=== PATIENT | male | born 1975 | race Caucasian/White ===

== ENCOUNTER 2025-05-05 08:45 | Outpatient (REF) | payer OTHER, SELFPAY ==
--- NOTE | ~2025-05-05 | XR_ITS ---
EXAMINATION: XR KNEE 3 VIEWS RIGHT HISTORY: M25.561 - Pain in right knee COMPARISON: There are no prior studies available for comparison. FINDINGS: Three views of the right knee are submitted. Osseous mineralization is normal. There is no fracture or dislocation. There is moderate to severe osteoarthritis of the lateral compartment with joint space narrowing and osteophyte formation. More moderate changes are noted involving the patellofemoral compartment. There is a moderate joint effusion. XR/XR knee RT 3V IMPRESSION: Moderate joint effusion. Osteoarthritis as described. Electronically signed by: Kennedy Hudson MD 05/05/2025 03:32 PM EDT
--- OUTSIDE RECORDS SUMMARY | 2025-05-06 09:23 | XMS_ITS | Clinical Summary ---
Author Organization [facility] Address [address] [place] [address] Care Team Providers Care Banbury Mixer Operator Name Role Phone Saud Mott PA-C Primary Care Provider [phone] Allergies Active Allergy Reactions Criticality Noted Date Comments Glatiramer Hives 10/18/2020 Medications Medication Sig Dispensed Refills Start Date End Date Status amLODIPine-valsartan -HCTZ (Exforge HCT) 5-160-25 MG TABS Take 1 tablet by mouth daily. 90 tablet 1 01/09/2024 Active Trijardy XR 12.5-2.5-1000 MG [id number]:Type 2 diabetes mellitus without complication, without long-term [...] place to sleep or slept in a intermediate (including now)? No 01/25/2024 Sex and Gender [...] age to complete this topic Care Teams Banbury Mixer Operator Relationship Specialty Start Date End Date Saud Mott PA-C PCP - General Wicker Worker 11/01/20
--- OUTSIDE RECORDS SUMMARY | 2025-05-06 09:23 | XMS_ITS | Encounter Summary ---
Author Organization [facility] Address [address] [place] [address] Care Team Providers Care Repairer Helper Name Role Phone Unavailable Primary Care Provider Unavailabl e Encounter Details Date Type Department Care Team (Latest Contact Info) Description 07/16/2020 Lab Requisition [facility] COVID Drive Through [address] [place] [address] [address] [place] [address] Bernard Gomez PA-C [address] [place] [phone] Encounter for laboratory testing for COVID-19 virus [...] is highly recommended.Final report signed by Kayy Castillo, Ph.D., [facility], Laboratory DirectorTests performed at [facility] Nasopharyngeal swab / Unknown 07/16/2020 3:39 PM EST 07/16/2020 3:39 PM EST Narrative [facility] - 07/19/2020 8:43 AM EST Performed by [facility] [address] [place] [address], CLIA# [id number] and [place] License# [id number] Bernard Gomez PA-C MICROBIOLOGY - GENERAL OR DERABLES Final Result [facility] documented in this encounter Visit Diagnoses Diagnosis Encounter for laboratory testing for COVID-19 virus documented in this encounter
--- OUTSIDE RECORDS SUMMARY | 2025-05-06 09:23 | XMS_ITS | Clinical Summary ---
Author Organization [facility] Address [address] [place] [address] Phone Care Team Providers Care Rescue Instructor Name Role Phone Saud Mott Primary Care Provider [phone] Allergies Active Allergy Reactions Criticality Noted Date [...] RC tear; Surgeon: Kamaljit Jose MD; Location: [facility]; Service: CSMI; Laterality: Right; SHOULDER ARTHROSCOPY 07/25/2017 Right PROCEDURE:SHOULDER ARTHROSCOPY;COMMENT:Procedure: AC EXCISION; Surgeon: Kamaljit Jose MD; Location: [facility]; Service: CSMI; Laterality: Right; ROTATOR CUFF REPAIR Right PROCEDURE:ROTATOR CUFF REPAIR Medical History Medical History Date Comments MS (multiple sclerosis) DX:MS (m ultiple sclerosis) ([facility]) Social History Tobacco Use Types Packs/Day Years [...] Description 05/18/2025 4:00 PM EDT Office Visit [facility] [address] [facility] [address] [place] [address] Kyrie Delgado MD [address] [place] [address] Health Maintenance Due Date Last Done Comments Colorectal Cancer Screening: Colonoscopy 1976 Hepatitis B Vaccines (1 of 3 - 19+ 3-dose series) 1995 Pneumococcal Vaccine: Pediatrics (0 to 5 Years) and At-Risk Patients (6 to 49 Years) (1 of 2 - PCV) 1995 Cholesterol Screening (Lipid Panel) 07/16/2022 Social Influencers of Health Screening 07/16/2022 [...] Routine 06/25/2024 3:30 PM EST Multiple sclerosis ([facility] V24, [facility] V28) HIV 1, 2 ANTIBODY, P24 ANTIGEN WITH REFLEX TO DIFFERENTIATION Routine 06/25/2024 3:30 PM EST Multiple sclerosis (CMS/HCC V24, CMS/HCC V28) CREATININE, SERUM Routine 06/25/2024 3:3 0 PM EST Multiple sclerosis (CMS/HCC V24, CMS/HCC V28) from Last 3 Months or Most Recently Relevant to Health Maintenance Results * Hepatitis C antibody (06/25/2024 3:30 PM EST) Pathologist [facility] Hepatitis C Antibody Negative Negative LAB CHEMISTRY METHOD 06/25/2024 7:45 PM EST [facility] Blood Venous blood specimen / Unknown Venipuncture / Unknown 06/25/2024 3:30 PM EST 06/25/2024 3:30 PM EST us Kyrie Delgado MD LAB BLOOD ORDERABLES Fin al Result Performing Organization Address [facility]/ZIP Co de Phone Number [facility] [address] [place] [address], [place] [phone] * HIV 1,2 antibody, p24 antigen with reflex to differentiation (06/25/2024 3:30 PM EST) [facility] HIV Combo AB/AG Negative Negative LAB CHEMISTRY METHOD 06/25/2024 7:47 PM EST [facility] Blood Venous blood specimen / Unknown Venipuncture / Unknown 06/25/2024 3:30 PM EST 06/25/2024 3:30 PM EST Narrative [facility] - 06/25/2024 7:47 PM EST [...] ORDERABLES Fin al Result Performing Organization Address [facility]/ZIP Co de Phone Number [facility] [address] [place] [address], * Creatinine (06/25/2024 3:30 PM EST) Creatinine 1.07 0.70 - 1.30 mg/dL LAB CHEMISTRY METHOD 06/25/2024 6:57 PM EST [facility] eGFR 86 >=60 mL/min/1. 73m2 LAB CHEMISTRY METHOD 06/25/2024 6:57 PM EST [facility] Comment:Calculation based on the Chronic Kidney Disease Epidemiology Collaboration (CKD-EPI) equation refit without adjustment for race. Blood Venous blood specimen / Unknown Venipuncture / Unknown 06/25/2024 3:30 PM EST 06/25/2024 3:30 PM EST Kyrie Delgado MD LAB BLOOD ORDERABLES Fin al Result [facility] [address] [place] [address], [place] [phone] from Last 3 Months or Most Recently Relevant to Health Maintenance Insurance [facility] ELENITA GALLARDO [id number] Care Teams Rescue Instructor Relationship Specialty Start Date End Date Saud Mott PA [address] [place] [address] PCP - General [place]ota 11/01/20
--- OUTSIDE RECORDS SUMMARY | 2025-05-06 09:23 | XMS_ITS | Encounter Summary ---
Author Organization [facility] Address [address] [id number] Care Team Providers Care Fruit Loader Machine Operator Name Role Phone Unavailable Primary Care Provider Unavailabl e Encounter Details Date Type Department Care Team (Latest Contact Info) Description 09/14/2020 Lab Requisition [facility] COVID [address] Through [address] [place] [address] [address] [place] [address] Sharad Ness MD [address] [place] [address] Encounter for laboratory testing for [...] Lele Juarez, Ph.D., Laboratory DirectorTests performed at [facility] Nasopharyngeal swab / Unknown 09/14/2020 11:55 AM EST 09/14/2020 11:55 AM EST Narrative BING JOSEPH - 09/15/2020 8:07 AM EST Performed by [facility] [address] [place] [address], CLIA# [id number] and [place] License# [id number] us Sharad Ness MD MICROBIOLOGY - GENERAL ORDER TERRI Final Result BING JOSEPH documented in this encounter Visit Diagnoses Diagnosis Encounter for laboratory testing for COVID-19 virus documented in this encounter
--- OUTSIDE RECORDS SUMMARY | 2025-05-06 09:23 | XMS_ITS | Clinical Summary ---
Author Organization [facility] Address [address] [place] [address] Care Team Providers Care Database Administrator Name Role Phone Unavailable Primary Care Provider [...]
--- OUTSIDE RECORDS SUMMARY | 2025-05-06 09:23 | XMS_ITS | Encounter Summary ---
Author Organization [facility] Address [address] [place] [address] Care Team Providers Care Electrocardiograph Operator Name Role Phone Unavailable Primary Care Provider Unavailabl e Encounter Details Date Type Department Care Team (Latest Contact Info) Description 07/21/2020 Lab Requisition [facility] [address] [place] [address] [address] [place] [address] Bernard Gomez PA-C [address] [place] [address] Encounter for laboratory testing for COVID-19 virus [...] Bisram Deocharan, Ph.D., Laboratory DirectorTests performed at [facility] Nasopharyngeal swab / Unknown 07/21/2020 1:09 PM EST 07/21/2020 1:09 PM EST Narrative BING JOSEPH - 07/23/2020 5:25 PM EST Performed by [facility] [address] [place] [address], CLIA# [id number] and [place] License# [id number] Bernard Gomez PA-C MICROBIOLOGY - GENERAL OR DERABLES Final Result BING JOSEPH documented in this encounter Visit Diagnoses Diagnosis Encounter for laboratory testing for COVID-19 virus documented in this encounter
== END 2025-05-05 08:46 | disposition home or self-care (01) ==
LOC: HO.HOSX 08:45
PROVIDERS: Visit Provider Orthopaedic Surgery
DX: S83.241D Other tear of medial meniscus, current injury, right knee, subsequent encounter (principal); X58.XXXD Exposure to other specified factors, subsequent encounter
CPT/HCPCS: 73562

== ENCOUNTER 2025-05-05 15:17 | Outpatient (AMB) | payer OTHER, SELFPAY ==
--- NOTE | 2025-05-05 15:25 | MHC.OFFVIS ---
Vital Signs 05/05/25 15:27 Height 5 ft 11 in Weight 235 lb BMI 32.8 Intake Visit Reasons: Right knee pain and giving way Intake Note: Saqib is a 49 year old male who presents with complaints of progressively worsening right knee pain and giving way. The patient states that he 1st injured his right knee several years ago while jumping on a trampoline. He had acute onset of pain along the medial aspect of his knee. He was seen by another orthopedic group approximately 6 months ago. He was given a cortisone injection at that time which gave him only temporary relief. He has failed the last 6 weeks of conservative treatment which has included Tylenol, anti-inflammatory medicines, a home exercise program and physical therapy exercises. The patient states that his right knee will give out several times per day. He has tried wearing a knee brace which gives him mild relief. Allergies No Known Allergies Allergy (Verified 05/05/25 15:27) Medication List - Last Reconciled 05/05/25 by John Saxena MD amlodipine-valsartan 5-160 mg 1 tab PO DAILY yggwhagzfze-eyfjsgng-dbcfpcmkk 12.5-2.5-1,000 mg ER (Trijardy XR) 2 tabs PO DAILY ergocalciferol (vitamin D2) 1,250 mcg PO QWEEK hydrochlorothiazide 25 mg PO DAILY varenicline tartrate 0.5 mg PO BID Physical Exam Vital Signs: BMI result Body Mass Index 32.8 Const Other: Well-nourished well-developed very friendly male awake alert and oriented x3 in no acute distress Extrem Other: Bilateral lower extremity examination shows good capillary refill, no skin lesions noted, normal sensation light touch Right knee examination shows a minimal effusion, mild crepitus with range of motion, tenderness along his medial joint line, positive Gustavo's test, no instability Results Reviewed Results Reviewed: X-rays of the patient's right knee show mild to moderate diffuse joint space narrowing, no acute bony abnormalities Assessment & Plan Assessment & Plan (1) Tear of medial meniscus of right knee: Code(s): S83.241A - Other tear of medial meniscus, current injury, right knee, initial encounter Category: Medical Plan Mr. Ho presents with progressively worsening right knee pain and mechanical symptoms due to early degenerative joint disease as well as possible medial meniscus tearing. Thus, I will send the patient for an MRI of his right knee for further evaluation. I will see him back once the MRI is completed to discuss the findings and treatment options. Feel free to call me at any time should questions regarding his orthopedic management arise. Thank you very much for asking me to see this very friendly gentleman. I spent 21 minutes in reviewing the patient's records and imaging studies, seeing the patient and documenting in the medical record. Orders: Orders XR knee RT 3V 05/05/25 M25.561 - Pain in right knee MR knee RT wo con Today S83.241A - Other tear of medial meniscus, current injury, right knee, initial encounter Coding Level of Care Code New Pt Level 3 (27279) Complex EM visit Add On G2211 Diagnoses Tear of medial meniscus of right knee S83.241A
[2025-05-05 15:27] VITALS: BMI 32.8
--- OUTSIDE RECORDS SUMMARY | 2025-05-05 16:36 | XMS_ITS | Clinical Summary ---
Author Organization [facility] Address [address] [place] [address] Care Team Providers Care Sand System Operator Name Role Phone Saud Mott PA-C Primary Care Provider [phone] Allergies Active Allergy Reactions Criticality Noted Date Comments Glatiramer Hives 10/18/2020 Medications Medication Sig Dispensed Refills Start Date End Date Status amLODIPine-valsartan -HCTZ (Exforge HCT) 5-160-25 MG TABS Take 1 tablet by mouth daily. 90 tablet 1 01/09/2024 Active Trijardy XR 12.5-2.5-1000 MG [id number]:Type 2 diabetes mellitus without complication, without long-term current use of insulin (HCC) TAKE 2 TABLETS BY MOUTH EVERY DAY 180 tablet 1 06/04/2024 Active Active Problems Problem Noted Date Diagnosed Date Essential hypertension 04/23/2023 Multiple sclerosis 04/23/2023 AC (acromioclavicular) arthritis 06/12/2017 Incomplete tear of right rotator cuff 06/12/2017 Social History Tobacco Use Types Packs/Day Years Used Date Smoking Tobacco: Every Day Cigarettes 0.5 Started: 2017 Smokeless Tobacco: Never Tobacco Cessation:Ready to Q uit: Not Asked; Counseling Given: Not Answered Alcohol Use Standard Drinks/Week Comments Yes 2 (1 standard drink = 0.6 oz pur e alcohol) Overall Financial Resource Strain (CARDIA) Answe r Date Recorded How hard is it for you to pa y for the very basics like food, housing, medical care, and heating? Not very hard 01/25/2024 Hunger Vital Sign Answer Date Recorded Within the past 12 months, y ou worried that your food would run out before you got the money to buy more. Never true 01/25/20 24 Within the past 12 months, t he food you bought just didn't last and you didn't have money to get more. Never true 01/25/2024 PRAPARE - Transportation Answer Date Re corded In the past 12 months, has l ack of transportation kept you from medical appointments or from getting medications? No 01/05 In the past 12 months, has l ack of transportation kept you from meetings, work, or from getting things needed for daily living? No 01/25/2024 Housing Stability Vital Sign Answer Cristobal e Recorded In the last 12 months, was t here a time when you were not able to pay the mortgage or rent on time? No 01/25/2024 In the last 12 months, how many places have you lived? 1 01/25/2024 In the last 12 months, was t here a time when you did not have a steady place to sleep or slept in a detention (including now)? No 01/25/2024 Sex and Gender Information Value Date Recorded Sex Assigned at Male 11/11/2020 2:52 PM EDT Gender Identity Not on file Sexual Orientation Not on file Job Start Date Occupation Industry Not on file Not on file Not on file Last Filed Vital Signs Vital Sign Reading Time Taken Comments Blood Pressure 147/87 04/21/2024 4:00 PM EDT Pulse 76 04/21/2024 4:00 PM EDT Temperature 36.3 C (97.3 F) 12/24/2023 4:05 PM EDT Respiratory Rate 20 08/14/2023 2:05 PM EST Oxygen Saturation 98% 04/21/2024 4:00 PM EDT Inhaled Oxygen Concentration - - Weight 101.4 kg (223 lb 9.6 oz) 04/21/2024 4:00 PM EDT Height 180.3 cm (5' 11 ) 04/21/2024 4:00 PM EDT Body Mass Index 31.19 04/21/2024 4:00 PM EDT Plan of Treatment Health Maintenance Due Date Last Done Comments Hepatitis B Vaccines (1 of 3 - 3-dose series) 1976 Hepatitis C Screening 1976 COVID-19 Vaccine (#1) 1976 Pneumococcal Vaccine (1 of 2 - PCV) 1982 Depression Screening 1988 BMI Counseling 1994 Diabetes: Eye Exam (No Retinopathy) 1994 Diabetes: Foot Exam 1994 Diabetes: Microalbumin Test 1994 Preventative Health Evaluation 1994 Tobacco Cessation Counseling 1994 DTap / Tdap / Td (1 - Tdap) 1995 Colon Cancer Screening (Colonoscopy) 2021 Influenza Vaccine (#1) 2025 Hemoglobin A1C Due 07/23/2025 01/21/2025, 0 04/04/2024, 12/04/2023, Additional history exists RSV Ped < 20 months Aged Out No longe r eligible based on patient's age to complete this topic Care Teams Sand System Operator Relationship Specialty Start Date End Date Saud Mott PA-C PCP - General Custom Car Builder 11/01/20
--- OUTSIDE RECORDS SUMMARY | 2025-05-05 16:36 | XMS_ITS | Encounter Summary ---
Author Organization [facility] Address [address] [place] [address] Care Team Providers Care Yield Clerk Name Role Phone Unavailable Primary Care Provider Unavailabl e Encounter Details Date Type Department Care Team (Latest Contact Info) Description 07/21/2020 Lab Requisition [facility] [facility] [address] [place] [address] [address] [place] [address] Bernard Gomez PA-C [address] [place] [address] [id number] Encounter for laboratory testing for COVID-19 virus Social History Tobacco Use Types Packs/Day Years Used Date Smoking Tobacco: Never Assessed Sex and Gender Information Value Date Recorded Sex Assigned at Not on file Legal Sex Male 3:01 PM EST Gender Identity Not on file Sexual Orientation Not on file documented as of this encounter Plan of Treatment Not on file documented as of this encounter Procedures Procedure Name Priority Date/Time Associated Diagnosis Comments COVID-19 (SARS-COV-2) - [facility] LAB Routine 07/21/2020 1:09 PM EST Encounter for laboratory testing for COVID-19 virus [ICD-10-CM] documented in this encounter Results * COVID-19 (SARS-COV-2) (SEMA4) (07/21/2020 1:09 PM EST) COVID-19 RT-PCR NOT-DETEC KRISTAL Not-Detec kristal 07/23/2020 5:25 PM EST [facility] - [facility] Comment:Interpretation: The viral RNA was not detected, making the COVID-19 diagnosis less likely. Clinical correlation is highly recommended.Final report signed by Bisram Deocharan, Ph.D., Laboratory DirectorTests performed at [facility] Microbiology Nasopharyngeal swab / Unknown 07/21/2020 1:09 PM EST 07/21/2020 1:09 PM EST Narrative BING JOSEPH - 07/23/2020 5:25 PM EST Performed by [facility]., [address] [place] [address], CLIA# [id number] and [place] License# [id number] Bernard Gomez PA-C MICROBIOLOGY - GENERAL OR DERABLES Final Result BING JOSEPH documented in this encounter Visit Diagnoses Diagnosis Encounter for laboratory testing for COVID-19 virus documented in this encounter
--- OUTSIDE RECORDS SUMMARY | 2025-05-05 16:36 | XMS_ITS | Data Portability ---
Author Organization [place] [facility] [place] Address [address] [place] [address] Care Team Providers Care Headstart Teacher Name Role Phone MARGUERITE SONG Primary Care Provider [phone] MARGUERITE SONG Referring Provider [phone] Assessment Encounter Date Assessment Date Assessment LastModified by Organization Details LastModified Time 02/29/2024 02/29/2024 The patient's history and physical exam are consistent with left impingement syndrome. X-rays were reviewed on the computer. The space between the undersurface of the acromion and above the humeral head is the impingement interval. Any condition that narrows this interval causes impingement, including the presence of subacromial bone spurs. There are 3 stages of impingement- stages I, II, and III. Stage I impingement occurs in young patients and is likely a result of overuse. Stage II impingement occurs in slightly older patients and likely results in tendonitis or partial tearing of the rotator cuff. Stage III impingement generally occurs in patients older than 50 and is associated with rotator cuff tearing. Conservative treatment options include avoiding aggravating activities, NSAIDS, home exercises or physical therapy, cortisone injections, or further testing. Operative interventions are reserved for patients who fail conservative treatment. After discussion, the patient was eager for an injection. Patient tolerated the injection well. Postinjection instructions given. Frequency of injection was reviewed. Patient will follow-up in 3 to 4 weeks if symptoms have not improved, sooner for any complications. All questions answered to their satisfaction. He would like to monitor symptoms after the injection. He is welcome return if they persist or return. Patient was seen and evaluated by Nic Alvarez PA-C in indirect conjunction with Dr. Lomas. The provider agrees with the history, physical examination, recommended tests/diagnostic imaging, and treatment plan. [email or web address] Not available 02/29/2024 16:30:47 01/02/2025 01/02/2025 Symptomatic righ t knee osteoarthritis, predominantly lateral compartment although he does have some mild patellofemoral and medial compartment degenerative changes. Given the degree of his lateral compartment arthrosis I would not be surprised if he has a degenerative lateral meniscus tear. He does have a joint effusion today. We reviewed the natural history of osteoarthritis. The patient understands that symptoms may progress over time requiring further intervention. We discussed in detail available treatment options. We discussed activity modification, especially avoiding impact type activities. We discussed the need for an ongoing maintenance flexibility and strengthening program. This should involve the core musculature, the hip, as well as the quadriceps and hamstrings. Intermittent icing 20 minutes off 3 to 4 times a day with the skin protected may be helpful for control of swelling. Uery-pwv-nfgwewb anti-inflammatory medications with appropriate GI precautions or Tylenol may be helpful in controlling intermittent symptoms of pain. An assistive device such as a cane may be helpful in unloading the joint. Supplements may be considered such as chondroitin and glucosamine sulfate. The literature is unclear as to benefit, however, some patients see improvement with these type of supplements. We also discussed other interventions including therapeutic injections. We discussed varieties of injections including cortisone, viscosupplementat ion, and PRP. We also discussed the possibility of surgical intervention if symptoms persist. We discussed arthroscopic intervention as well as total knee arthroplasty. A decision for surgery is dependent on a variety of factors including patient characteristics, co-morbidities, expectations, and expected outcome. We went over treatment options at length. Given his effusion and discomfort I offered him an aspiration and cortisone injection. He wanted to proceed. Tolerated procedure well. Postinjection instructions reviewed. Recheck in about 3 weeks we will see how he responds to the injection. Future consideration for viscosupplementat ion. May also benefit from consideration of a lateral signal constructor brace. Not clear that he would be a candidate for anything arthroscopic given the degree of his degenerative change. Long-term management may be a knee arthroplasty, thought would be to try to delay this as long as possible given his young age. Questions invited and answered at length. Greater than 30 minutes was spent with the encounter today, including face to face time with the patient, documentation, review of records/imaging if applicable, and coordination of care. Not available 01/02/2025 17:04:15 01/29/2025 01/29/2025 Improved acute right knee pain in the setting of lateral compartment arthritis. He is essentially asymptomatic. Will continue with observation and can continue activities as tolerated. We again discussed the diagnosis and reviewed treatment options moving forward. He will follow-up with us as needed. Questions invited and answered. Patient verbalizes understanding and agreement with plan. PRIOR SAB: Symptomatic right knee osteoarthritis, predominantly lateral compartment although he does have some mild patellofemoral and medial compartment degenerative changes. Given the degree of his lateral compartment arthrosis I would not be surprised if he has a degenerative lateral meniscus tear. He does have a joint effusion today. We went over treatment options at length. Given his effusion and discomfort I offered him an aspiration and cortisone injection. He wanted to proceed. Tolerated procedure well. Postinjection instructions reviewed. Recheck in about 3 weeks we will see how he responds to the injection. Future consideration for viscosupplementat ion. May also benefit from consideration of a lateral signal constructor brace. Not clear that he would be a candidate for anything arthroscopic given the degree of his degenerative change. Long-term management may be a knee arthroplasty, thought would be to try to delay this as long as possible given his young age. Questions invited and answered at length. Not available 01/29/2025 14:09:20 Plan of Treatment Reminders Order Date Submit Date Provider Last Modified By Organization Details Last Modified Time Details Appointments None recorded. Lab None recorded. Referral None recorded. Procedures None recorded. Surgeries None recorded. Imaging XR, knee, 3 view 2024 025 [email or web address] [facility], [address], [place], [address], 15:37:38 XR, shoulder, 2 or more view 2023 024 [email or web address] [facility], [address], [place], [address], 4 08:41:49 Medication Orders lidocaine (PF) 100 mg/5 mL (2 %) injection syringe 2024 025 [email or web address] #[id number], [address] [place], [address], 5 16:39:38 triamcinolo ne acetonide 40 mg/mL suspension for injection 2024 025 [place] [address] [id number], [address] [place], [address], 5 16:39:38 lidocaine (PF) 100 mg/5 mL (2 %) injection syringe 2023 024 [facility] 21 [facility] #[id number], [address] [place], [address], 4 08:41:49 triamcinolo ne acetonide 40 mg/mL suspension for injection 2023 024 [facility] 21 [facility] #[id number], [address] [place], [address], 4 08:41:49 Patient TargetsNo targets recorded. Patient Instructions Encounter Date Encounter Id Patient Instructions Last Modified By Organization Details Last Modified Time 02/29/2024 [id number] Radiographs: 4 Views of the Left shoulder were obtained in the [place] office on 02/29/2024 including AP, Grashey, Y and axillary views. X-rays demonstrated normal bony mineralization. No significant degenerative changes in the AC joint with no widening. . Glenohumoral joint space well-maintained. No abnormal calcifications in the lateral shoulder. No evidence of acute injury or fracture. Interpretation by: Nic Alvarez PA-C [email or web address] Not available 02/29/2024 16:31:11 01/02/2025 [id number] Patient Instructions Following Cortisone Injections Dr. Lomas has recommended a cortisone injection for you in the office today. He has injected the area in order to reduce the pain and inflammation that you are experiencing. Please note that not everyone will have a lasting response following the injection. Here is some information that he would like for you to have: Content of the Injection: The injection consists of two medications. Cortisone (an anti-inflammatory that will take 48-72 hours to take effect) and Lidocaine (a numbing agent that will last 2-3 hours). Once the Lidocaine wears off, you may have an increase in your pain. Dr. Lomas recommends icing the affected area for 20 minutes 3-4 times per day. Post-injection Instructions: It is recommended that you refrain from any high level activities using the joint or limb that was injected for approximately 24-48 hours. Normal day to day activities are generally not a problem. Possible Side Effects Skin discoloration: Individuals with dark complexions may experience some skin discoloration locally at the site of the injection. Steroid Flare-Up: There is the possibility of an increase in discomfort within 48 hours following the injection. This is called a pranav chene . To help minimize the chances of this, please see the post-injection instructions above. Infection: There is a less than 1% chance of an infection. If you notice any signs of infection (redness, warmth, drainage, fever greater than 100 degrees) you should call Dr. Lomas s office immediately at [phone]. Not available 01/02/2025 15:13:11 3 views of the right knee were obtained on 01/02/2025 in the [place] office. There is moderate lateral joint space narrowing with marginal osteophyte formation. Subtle marginal osteophyte formation on the medial tibial plateau. Mild retropatellar spurring. Patella tracks centrally. Small enthesophyte from the superior patella. No acute fracture appreciated. Findings: Right knee osteoarthritis as described. Interpreted by: Javier Lomas MD Not available 01/02/2025 15:33:14 01/29/2025 [id number] views of the right knee were obtained on 01/02/2025 in the [place] office. There is moderate lateral joint space narrowing with marginal osteophyte formation. Subtle marginal osteophyte formation on the medial tibial plateau. Mild retropatellar spurring. Patella tracks centrally. Small enthesophyte from the superior patella. No acute fracture appreciated. Findings: Right knee osteoarthritis as described. Interpreted by: Javier Lomas MD Not available 01/29/2025 14:06:26 Reason for Referral None Reported. Problems Name Problem SNOMED Code Status Onset Date Resolution Date Notes Provider Name and Address Organization Details Recorded Time Problem 59555253 Active No known active problems Not Available [facility] 23:47:41 Partial thickness rotator cuff tear 902541263 Active 2016 Incomplet e tear of right rotator cuff Not Available [facility] 23:47:41 Arthritis of acromiocl avicular joint 138693080 Active 2016 AC (acromioc lavicular ) arthritis Not Available [facility] 23:47:41 Multiple sclerosis 86972823 Active 2022 Multiple sclerosis Not Available [facility] 23:47:41 Essential hypertens ion 49012644 Active 2022 Essential hypertens ion Not Available [facility] 23:47:41 Osteoarth ritis of right knee joint 54187502461 9100 Active 2024 Javier Lomas MD [address], [place], [address] , [place] [facility] 14:50:42 Effusion of joint of right knee 33174614460 9104 Active 2024 Javier Lomas MD [address], [place], [address] , [place] [facility] 5 17:04:23 Pain of right knee joint 23087299904 4100 Active 2024 EDILSON KUMAR PA-C [address], [place], [address] , [place] [facility] 5 14:06:25 Problem Notes None recorded. Procedures Surgical History Date Name Laterality Status Provider Name and Address Organization Details Recorded Time SAB Knee Inj w/US completed Javier Lomas MD [address], [place], [address], [place] [facility] 01/02/2025 15:34:03 4 SUSAN Subacromial Shoulder Inj completed NIC ALVAREZ PA-C [address], [place], [address], [place] [facility] 02/29/2024 16:27:02 Imaging Results None recorded. Procedure Notes None recorded. Medical Equipment None Reported. Allergies Allergen ID Allergen Name Allergen Category Reaction Reaction Severity Criticality Documentation Date Start Date Code Code System Note Provider Name and Address Organization Details Recorded Time 474085 glatirame r acetate medicatio n Not available Not available Not available 04/28/20252020 75300 RxNorm React ion: Hives , sever ity: Unkno wn Not Available [facility] 01:30:53 Medications Name Sig Start Date Stop Date Status Note LastModified by Organization Details LastModified Time acetaminoph en 325 mg tablet Take 2 tablets (650 mg total) by mouth every 6 (six) hours as needed for pain. 04/23 completed Not Available Not Available Not Available ondansetron HCl 4 mg tablet Take 1 tablet (4 mg total) by mouth every 6 (six) hours as needed for nausea. 01/10 completed Not Available Not Available Not Available oxycodone-a cetaminophe n 5 mg-325 mg tablet Take 1 tablet by mouth every 4(four) to 6(six) hours as needed for pain. (Q4-6hrs PRN) 12/21 completed Not Available Not Available Not Available triamcinolo ne acetonide 40 mg/mL suspension for injection Take 60 mg by injection route. 2024 active Not Available Not Available Not Avai lable ibuprofen 200 mg tablet Take 1 tablet (200 mg total) by mouth every 6 (six) hours as needed for pain. 04/23 completed Not Available Not Available Not Available etodolac 400 mg tablet Take 1 tablet (400 mg total) by mouth 2 (two) times a day. 12/21 completed Not Available Not Available Not Available hydrochloro thiazide 25 mg tablet TAKE 1 TABLET BY MOUTH EVERY DAY active Not Available Not Available No t Available ergocalcife rol (vitamin D2) 1,250 mcg (50,000 unit) capsule TAKE 1 CAPSULE (50,000 UNITS TOTAL) BY MOUTH ONCE WEEKLY active Not Available Not Available No t Available valsartan active Not Available Not Lilia ilable Not Available hydrochloro thiazide active Not Available Not Available Not Available amlodipine active Not Available Not Av ailable Not Available varenicline tartrate 0.5 mg tablet TAKE 1 TABLET BY MOUTH TWICE A DAY active Not Available Not Available No t Available amlodipine 5 mg-valsarta n 160 mg tablet TAKE 1 TABLET BY MOUTH EVERY DAY active Not Available Not Available No t Available amlodipine 5 mg-valsarta n 160 mg-hydrochl orothiazide 25 mg tablet TAKE 1 TABLET BY MOUTH EVERY DAY active Not Available Not Available No t Available lidocaine (PF) 100 mg/5 mL (2 %) injection syringe Take 5 mL by injection route. 2024 active Not Available Not Available Not Avai lable Trijardy XR 12.5 mg-2.5 mg-1,000 mg tablet, extended release TAKE 2 TABLETS BY MOUTH EVERY DAY active Not Available Not Available No t Available Trijardy XR active Not Available Not A vailable Not Available Vitals Date Recorded Body height Body mass index (BMI) Body weight Provider Name and Address Organization Details Last Updated DateTime 01/29/2025 180.34 cm 30.7 kg/m2 [address]1680.[address] [place] [facility] 01/29/2025 13:35:11 Date Recorded Body height Body mass index (BMI) Body weight Provider Name and Address Organization Details Last Updated DateTime 02/29/2024 180.34 cm 30.7 kg/m2 34132.[address] [place] [facility] 02/29/2024 15:51:08 Date Recorded Body height Body mass index (BMI) Body weight Heart rate Oxygen saturation Oxygen saturation in Arterial blood by Pulse oximetry Systolic And Diastolic Provider Name and Address Organization Details Last Updated DateTime 180.3 cm 31.19 kg/m2 759215 g 76 /min 98 % 98 % 147/87 mm[Hg] Not Available [facility] 01:02:38 Social History None recorded. Functional Status None recorded. Mental Status None recorded. Family History Nothing Reported. Medical History No medical history recorded. Past Encounters Encounter ID Performer Location Encounter Start Date Encounter Closed Date Diagnosis/Indication Diagnosis SNOMED-CT Code Diagnosis ICD10 Code Diagnosis IMO Codes [id number] [address] [place] [address] 02/29/2024 15:24:56 02/29/2024 16:24:52 Pain of left shoulder region 7711280734 M25.512 Additional diagnosis detail: Left shoulder pain, unspecifie d chronicity [id number] MD BESSIE Braun [address] [facility] [place] [address] 01/02/2025 14:30:15 01/02/2025 15:37:38 Pain of right knee joint 1749735492 50458 M25.561 934612 Osteoarthr itis of right knee joint 1378607130 95001 M17.11 3110638 Effusion o f joint of right knee 5954592372 59371 M25.311 [id number] [facility] [address] [place] [address] 01/29/2025 13:29:47 01/29/2025 14:03:36 Osteoarthritis of right knee joint 1973873481 14327 M17.11 4494755 Pain of ri ght knee joint 6977976333 15235 M25.561 515608 Effusion o f joint of right knee 2176870870 98798 M25.410 2216052 Health Concerns Section Related Observation LastModified by Organization Detai ls LastModified Time None Recorded Concern Status LastModified by Organization Details LastModified Time None Recorded Advance Directives Directive None Recorded Payers Insurance Date Sequence Insurance Name Policy Number Policy Lisa Covered Member ID Lisa Member ID Guarantor Name 01/02/2025 1 LINDA [id number] Saqib Ho [id number] Saqib Ho 01/29/2025 1 [facility] [id number] Saqib Ho [id number] Saqib Ho Notes Date Note Type Note Provider Name and Address Organization Details Recorded Time 02/29/2024 text/html ROS as noted in the HPI Patient is a 48-year-old male who presents today with 2 months of left shoulder pain. 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 He was having increased pain which is gotten worse. Symptoms are exacerbated after doing a ceiling job. With his ongoing symptoms he presents today for orthopedic consultation. No numbness or tingling. Pain with specific positions. No weakness. He does have a history of rotator cuff tear repaired on the right many years ago. 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 He is a daily smoker. NIC ALVAREZ PA-C [address], [place], [address], [place] [facility] 02/29/2024 16:31:56 01/02/2025 text/html ROS as noted in the HPI Very pleasant 49-year-old gentleman here for an evaluation of persistent right knee pain. 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 He denies any prior history of significant injuries or problems to the knee before that. Following that May 2024 incident he described the knee as sore, a little bit swollen. He obtained a knee sleeve. About 6 weeks ago he was at his chiropractic office and they noted some stiffness in flexion. They have been doing some ultrasound and other treatment as well as flexibility and he has had some increased symptomatology. About 3 weeks ago he hyperextended the knee again and its remained swollen and more sore. He continues to use the knee sleeve which is helpful. He continues to be very active, working a lot of jobs and doing a lot of yard work. Pain is predominantly lateral but also can be medial and posterior. He denies radiating pain to the hip or ankle. Pain is variable, today ranging between a 7 to a 9 on a 10 point scale. He denies mohinder catching or locking but at times feels there is some instability and clicking. Javier Lomas MD [address], [place], [address], [place] [facility] 01/02/2025 17:06:04 01/29/2025 text/html ROS as noted in the HPI Patient returns to the office today for follow-up evaluation of his right knee. He reports excellent improvement in his symptoms following aspiration and injection last month. He has very minimal intermittent soreness behind the back of the knee after a long day at work. He ices nightly. He has been wearing compression knee sleeve. He is careful to use kneepads or a cushion surface when kneeling. He offers no new complaints today. PRIOR SAB:Very pleasant 49-year-old gentleman here for an evaluation of persistent right knee pain. 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 He denies any prior history of significant injuries or problems to the knee before that. Following that May 2024 incident he described the knee as sore, a little bit swollen. He obtained a knee sleeve. About 6 weeks ago he was at his chiropractic office and they noted some stiffness in flexion. They have been doing some ultrasound and other treatment as well as flexibility and he has had some increased symptomatology. About 3 weeks ago he hyperextended the knee again and its remained swollen and more sore. He continues to use the knee sleeve which is helpful. He continues to be very active, working a lot of jobs and doing a lot of yard work. Pain is predominantly lateral but also can be medial and posterior. He denies radiating pain to the hip or ankle. Pain is variable, today ranging between a 7 to a 9 on a 10 point scale. He denies mohinder catching or locking but at times feels there is some instability and clicking. EDILSON KUMAR PA-C [address], [place], [address], [place] [facility] 01/29/2025 14:09:31
--- OUTSIDE RECORDS SUMMARY | 2025-05-05 16:36 | XMS_ITS | Data Portability ---
Author Organization [place] - [facility], autoContract - [facility] Address [address] [place] [address] Assessment No assessment recorded. Plan of Treatment Reminders Order Date Submit Date Provider Last Modified By Organization Details Last Modified Time Details Appointments OFFICE VISIT 30 2024 04:00P M DC Zimmerman Not available Not available Not available Lab noninvasi ve colorecta l cancer DNA + occult blood screening , QL, stool 2024 025 scyr9 Izooble (Cologuard Orders Only), [address], [address], [place], [address], 04/29/2025 16:55:23 urinalysi s, dipstick 2024 025 [email or web address] [id number] p, [address] [place] [address], [phone], 01/28/2025 15:57:22 HbA1c (hemoglob in A1c), blood 2024 025 [email or web address] [id number] p, [address] [place] [address], [phone], 09/30/2024 16:40:25 Referral None recorded. Procedures None recorded. Surgeries None recorded. Imaging electroca rdiogram 2024 025 [email or web address] [id number] p, [address] [place] [address], [phone], 01/28/2025 15:57:22 Medication Orders varenicli ne tartrate 0.5 mg tablet 2024 025 [facility] #[id number], [address] [place] [address], [address], 09/30/2024 16:38:38 Patient TargetsNo targets recorded. Patient InstructionsNo instructions recorded. Reason for Referral None Reported. Results Created Date Observation Date Name Description Value Unit Range Abnormal Flag Note LastModifiedBy Organization Detail LastModifiedTime 09/30/1909/30/2024 HbA1c (hemo globi n A1c), blood HbA1c 6.2 Not Available [id number] p [address] [place] [address], [phone], 09/30/2024 16:19:08 01/22/20 25 01/22/2025 LIPID PANEL WITH REFLE X TO DIREC T LDL cholesterol, total 142 mg/dL <200 normal Not Available [facility] [address], [address], 01/22/2025 01:08:25 01/22/20 25 01/22/2025 LIPID PANEL WITH REFLE X TO DIREC T LDL HDL cholesterol 57 mg/dL > or = 40 normal Not Available [facility] [address], [address], 01/22/2025 01:08:25 01/22/20 25 01/22/2025 LIPID PANEL WITH REFLE X TO DIREC T LDL triglyceride s 96 mg/dL <150 normal Not Available [facility] [address], [address], 01/22/2025 01:08:25 01/22/2001/22/2025 LIPID PANEL WITH REFLE X TO DIREC T LDL LDL-choleste rol 67 mg/dL _(fani c) normal Refer ence range : <100 Isabell able range <100 mg/dL for prima ry preve ntion ; <70 mg/dL for patie nts with CHD or diabe tic patie nts with > or = 2 CHD risk facto rs. LDL-C is now calcu lated using the Marni n-Hop kins santa burdick n, which is a valid ated novel melo al accur acy than the Fried amparo godinezat ion in the estim ation of LDL-C . Marni osuna SS et al. ISABELL. 2013; 310(1 9): 2061- 2068 (http ://ed ucati on.Qu estDi Stereobots. com/f aq/FA Q164) Not Available [facility] [place] [facility] [address], [place], [address], 01/22/2025 01:08:25 01/22/2001/22/2025 LIPID PANEL WITH REFLE X TO DIREC T LDL chol/HDLC ratio 2.5 (calc ) <5.0 normal Not Available [facility] [place] [facility] [address], [place], [address], 01/22/2025 01:08:25 01/22/20 25 01/22/2025 LIPID PANEL WITH REFLE X TO DIREC T LDL non HDL cholesterol 85 mg/dL _(fani c) <130 normal For patie nts with diabe lópez plus 1 major ASCVD risk facto r, treat ing to a non-H DL-C goal of <100 mg/dL (LDL- C of <70 mg/dL ) is consi dered a thera peuti c optio n. Not Available [facility] [place] [facility] [address], [place], [address], 01/22/2025 01:08:25 01/22/2001/22/2025 BASIC METAB OLIC PANEL glucose 105 mg/dL 65-99 high Fasti ng refer ence inter perfecto For someo ne witho ut known diabe lópez, a gluco se value betwe en 100 and 125 mg/dL is consi stent with predi abete s and shoul d be confi rmed with a follo w-up test. Not Available [facility] [place] [facility] [address], [place], [address], 01/22/2025 01:08:26 01/22/20 25 01/22/2025 BASIC METAB OLIC PANEL urea nitrogen (BUN) 18 mg/dL 7-25 normal Not Available [facility] [place] [facility] [address], [place], [address], 01/22/2025 01:08:26 01/22/20 25 01/22/2025 BASIC METAB OLIC PANEL creatinine 1.06 mg/dL 0.60-1 .29 normal Not Available [facility] [place] [facility] [address], [place], [address], 01/22/2025 01:08:26 01/22/2001/22/2025 BASIC METAB OLIC PANEL eGFR 87 mL/mi n/1.7 3m2 > or = 60 normal Not Available [facility] [address], [place], [address], 01/22/2025 01:08:26 01/22/2001/22/2025 BASIC METAB OLIC PANEL BUN/creatini ne ratio SEE NOTE: (calc ) 6-22 Not Repor leslie: BUN and Creat inine are withi n refer ence range . Not Available [facility] [address], [place], [address], 01/22/2025 01:08:26 01/22/2001/22/2025 BASIC METAB OLIC PANEL sodium 139 mmol/ L 135-14 6 normal Not Available [facility] [address], [place], [address], 01/22/2025 01:08:26 01/22/20 25 01/22/2025 BASIC METAB OLIC PANEL potassium 4.7 mmol/ L 3.5-5. 3 normal Not Available [facility] [address], [place], [address], 01/22/2025 01:08:26 01/22/2001/22/2025 BASIC METAB OLIC PANEL chloride 103 mmol/ L 98-110 normal Not Available [facility] [place] [facility] [address], [place], [address], 01/22/2025 01:08:26 01/22/20 25 01/22/2025 BASIC METAB OLIC PANEL carbon dioxide 27 mmol/ L 20-32 normal Not Available [facility] [place] [facility] [address], [place], [address], 01/22/2025 01:08:26 01/22/2001/22/2025 BASIC METAB OLIC PANEL calcium 9.7 mg/dL 8.6-10 .3 normal Not Available [facility] [place] [address], [place], [address], 01/22/2025 01:08:26 01/22/2001/21/2025 HEMOG LOBIN A1C WITH MPG hemoglobin A1C 6.5 % <5.7 high For someo ne witho ut known diabe lópez, a hemog lobin A1c value of 6.5% or great er indic ates that they may have diabe lópez and this shoul d be confi rmed with a follo w-up test. For someo ne with known diabe lópez, a value <7% indic ates that their diabe lópez is well contr olled and a value great er than or equal to 7% indic ates subop timal contr ol. A1c targe ts shoul d be indiv idual ized based on durat ion of diabe lópez, age, comor bid condi tions , and other consi derat ions. Curre ntly, no conse nsus exist s regmarina mireles use of hemog lobin A1c for diagn osis of diabe lópez for child samir. Not Available [facility] [place] [facility] [address], [place], [address], 01/21/2025 22:46:20 01/22/20 25 01/21/2025 HEMOG LOBIN A1C WITH MPG mean plasma glucose 154 mg/dL _(fani c) Not Available [facility] [address], [place], [address], 01/21/2025 22:46:20 01/29/20 elect rocar diogr am No observ ation record ed. [email or web address] [id number] p [address] [place] [address], [phone], 01/28/2025 15:27:00 02/04/20 elect rocar diogr am No observ ation record ed. [email or web address] [id number] p [address] [place] [address], [phone], 02/03/2025 15:23:46 Result Notes None recorded. Problems Name Problem SNOMED Code Status Onset Date Resolution Date Notes Provider Name and Address Organization Details Recorded Time Partial thickness rotator cuff tear 583949050 Active 2016 Incomplete tear of right rotator cuff; QBY2Ichkvo ption: Incomplete tear of right rotator cuff; YCI37Zirqh iption: Incomplete tear of right rotator cuff; ; Not Available [facility] 12:38:24 Arthritis of acromiocl avicular joint 670309548 Active 2016 AC (acromiocl avicular) arthritis; ANY5Dubqia ption: AC (acromiocl avicular) arthritis; QDI65Cvtqb iption: AC (acromiocl avicular) arthritis; dlname: Rebeca; dfname: Kamaljit; Physician_ Suffix: ; Physician_ Phone: tel:[phone]; Physician_ Fax: fax:[phone]; Physician_ Specialty: Orthopedic s; Physician_ Addr1: [address]; Physician_ Addr2: [facility]; Physician_ City: [place]; Physician_ State: [place]; Physician_ PostalCode : [address]; ; Not Available [facility] 12:38:25 Multiple sclerosis 50047957 Active 2022 Multiple sclerosis; YHU1Wubfco ption: Multiple sclerosis; HYN85Lpzcz iption: Multiple sclerosis; ; Not Available [facility] 12:38:24 Essential hypertens ion 43907638 Active 2022 Essential hypertensi on; QXI1Wcsvqs ption: Essential hypertensi on; YQX32Otssl iption: Essential hypertensi on; dlname: Sanchez; dfname: Guille; Physician_ Suffix: MD; Physician_ Specialty: Internal Medicine; ; Not Available [facility] 12:38:24 Problem Notes None recorded. Procedures Surgical History Date Name Laterality Status Provider Name and Address Organization Details Recorded Time Eclina arthrs srg rt8tr cuf rpr completed Not Available [facility] 10/14/2024 04:06:26 Imaging Results None recorded. Procedure Notes None recorded. Medical Equipment None Reported. Allergies Allergen ID Allergen Name Allergen Category Reaction Reaction Severity Criticality Documentation Date Start Date Code Code System Note Provider Name and Address Organization Details Recorded Time 95824 glatirame r acetate medicatio n hives Not available Not available 09/15/20242020 49710 RxNorm React ion: Hives ; Comme nt: dfnam e: Ellie ; dlnam e: Cropa nese; Physi cian_ Addr1 : [address]; Physi cian_ Addr2 : [facility]; Physi cian_ City: [facility] ord; Physi cian_ State : [place]; Physi cian_ Posta lCode : [address] ; Physi cian_ Suffi x: [place]; ; Not Available [facility] 08:38:51 Medications Name Sig Start Date Stop Date Status Note LastModified by Organization Details LastModified Time tamsulosin 0.4 mg capsule TAKE 1 CAPSULE BY MOUTH EVERY DAY 09/30 completed Not Available Not Available Not Available hydrochlorot hiazide 25 mg tablet TAKE 1 TABLET BY MOUTH EVERY DAY 2024 active Not Available Not Available Not Avai lable ergocalcifer ol (vitamin D2) 1,250 mcg (50,000 unit) capsule TAKE 1 CAPSULE (50,000 UNITS TOTAL) BY MOUTH ONCE WEEKLY active Not Available Not Available No t Available oxycodone 5 mg tablet TAKE 1 TABLET BY MOUTH EVERY 6 HOURS NEEDED FOR PAIN 09/30 completed Not Available Not Available Not Available varenicline tartrate 0.5 mg tablet Take 1 tablet twice a day by oral route for 30 days. 2024 active Not Available Not Available Not Avai lable amlodipine 5 mg-valsartan 160 mg tablet TAKE 1 TABLET BY MOUTH EVERY DAY 2024 active Not Available Not Available Not Avai lable amlodipine 5 mg-valsartan 160 mg-hydrochlo rothiazide 25 mg tablet TAKE 1 TABLET BY MOUTH EVERY DAY 01/02 completed Not Available Not Available Not Available Trijardy XR 12.5 mg-2.5 mg-1,000 mg tablet, extended release TAKE 2 TABLETS BY MOUTH EVERY DAY active Not Available Not Available No t Available Vitals Date Recorded Body height Body weight Oxygen saturation Oxygen saturation in Arterial blood by Pulse oximetry Heart rate Body mass index (BMI) Systolic And Diastolic Provider Name and Address Organization Details Last Updated DateTime 5 180.29 cm 509208. 69 g 97 % 97 % 98 /min 31.3 kg/m2 110/70 mm[Hg] Mirna Lezama [facility] 5 16:26:18 Date Recorded Body height Heart rate Oxygen saturation Oxygen saturation in Arterial blood by Pulse oximetry Body temperature Body mass index (BMI) Body weight Systolic And Diastolic Provider Name and Address Organization Details Last Updated DateTime 5 180.34 cm 88 /min 99 % 99 % 98.2 [degF] 32.4 kg/m2 488192. 43 g 123/83 mm[Hg] Andreia Mcrae [facility] 5 15:10:47 Social History None recorded. Functional Status None recorded. Mental Status None recorded. Family History Nothing Reported. Medical History No medical history recorded. Past Encounters Encounter ID Performer Location Encounter Start Date Encounter Closed Date Diagnosis/Indication Diagnosis SNOMED-CT Code Diagnosis ICD10 Code Diagnosis IMO Codes Diagnosis Note [id number] DC Zimmerman [id number] A_[id number] [address] [place] [id number] 09/30/2024 16:16:56 09/30/2024 16:39:52 Type 2 diabetes mellitus 61741975 E11.9 - stable on Trijardy- repeat labs at physical in 4 months- patient likely statin candidate, will review at that visit with him Essential hypertension 72059991 I10 - stable, continue current therapy Smoker 97256569 F17.200 - trial of chantix- currently smoking 1 PPD- follow up in 1 month- smoking cessation advised Multiple sclerosis 50992 007 G35 - stable, followed by neurology [id number] DC Zimmerman [id number] A_PCP [address] [place] [id number] 01/28/2025 15:02:54 01/28/2025 15:44:14 Physical examination 1031195 Z00.00 [id number] Cologuard orderedTda p 2021Flu declinedCo vid declined Essential hypertension 84485052 I10 - stable, continue current therapy Type 2 ricardo betes mellitus 27702763 E11.9 01508605 - stable on Trijardy- A1c 6.5- patient defers statin for now, LDL is at goal already < 70- follow up and A1c in 4 months Multiple sclerosis 25534 007 G35 - stable, followed by neurology Screening for malignant neoplasm of colon 433258582 Z12.11 019958 - cologuard ordered Cigarette smoker 2394970 7 F17.210 771484 - on Chantix once per day, down to 1/2 PPD- smoking cessation again advised Health Concerns Section Related Observation LastModified by Organization Detai ls LastModified Time None Recorded Concern Status LastModified by Organization Details LastModified Time None Recorded Advance Directives Directive None Recorded Payers Insurance Date Sequence Insurance Name Policy Number Policy Lisa Covered Member ID Lisa Member ID Guarantor Name 01/25/2025 1 [employer] [id number] Saqib Ho [id number] Saqib Ho Notes Date Note Type Note Provider Name and Address Organization Details Recorded Time 09/30/2024 text/html Doing well overall, no concerns. A1c 6.2. Has been eating more jelly beans lately. MS in remission. Sees neurology every 6 months. BP stable. Medication compliant. DC Zimmerman [address] [place] [address], [phone], [facility] 09/30/2024 16:40:17 01/28/2025 text/html The patient presents today for a follow-up visit. He reports no new health concerns and states he is doing pretty good. Regarding his multiple sclerosis (MS), the patient mentions he stopped taking his prescribed medication 4 years ago and has been using gummies at night instead. He reports that this regimen has been working well for him, stating it takes my stress away and relaxes me. The patient is considering a new MS treatment involving periodic injections that lower the immune system, which he is currently discussing with his MS specialist.The patient discloses that he is still smoking cigarettes, estimating his current consumption at 8 to 10 per day. He attempted to quit using Chantix but experienced vivid, disturbing dreams as a side effect, particularly when taking the medication at night. This led him to discontinue the evening dose, which he believes may have impacted the effectiveness of his smoking cessation efforts. He describes his current smoking pattern, noting that he sometimes clips cigarettes, smoking them in parts throughout the day.The patient reports a recent dental procedure, having received new dentures after being without front teeth for 5 years. He mentions some residual soreness from the procedure but is generally pleased with the outcome.The patient also discusses an ongoing knee issue. He hyperextended his knee 8 months ago and has been using a pull-up brace. Recently, he experienced increased pain and swelling, which required drainage and a cortisone injection. He mentions having arthritis in the knee and is scheduled for a follow-up appointment with a specialist the next day to discuss potential treatments, including the possibility of removing bone spurs. DC Zimmerman [address] [place] [address], [phone], [facility] 01/28/2025 15:41:00
--- OUTSIDE RECORDS SUMMARY | 2025-05-05 16:36 | XMS_ITS | Encounter Summary ---
Author Organization [facility] Address [address] [id number] Care Team Providers Care Pretzel Twisting Machine Operator Name Role Phone Unavailable Primary Care Provider Unavailabl e Encounter Details Date Type Department Care Team (Latest Contact Info) Description 09/14/2020 Lab Requisition [facility] [address] Through [address] [place] [address] [address] [place] [address] Sharad Ness MD [address] [place] [address] Encounter for laboratory testing for COVID-19 virus [...] Comments COVID-19 (SARS-COV-2) - [facility] LAB Routine 09/14/2020 11:55 AM EST Encounter for laboratory testing for COVID-19 virus [ICD-10-CM] documented in this encounter Results * COVID-19 (SARS-COV-2) (SEMA4) (09/14/2020 11:55 AM EST) COVID-19 RT-PCR NOT-DETEC KRISTAL Not-Detec kristal 09/15/2020 8:07 AM EST [facility] - [facility] Comment:Interpretation: The viral RNA was not detected, making the COVID-19 diagnosis less likely. Clinical correlation is highly recommended.Final report signed by Lele Juarez, Ph.D., Laboratory DirectorTests performed at [facility] Nasopharyngeal swab / Unknown 09/14/2020 11:55 AM EST 09/14/2020 11:55 AM EST Narrative BING JOSEPH - 09/15/2020 8:07 AM EST Performed by [facility] [address] [place] [address], CLIA# [id number] and [place] License# [id number] us Sharad Ness MD MICROBIOLOGY - GENERAL ORDER TERRI Final Result BING JOSEPH documented in this encounter Visit Diagnoses Diagnosis Encounter for laboratory testing for COVID-19 virus documented in this encounter
--- OUTSIDE RECORDS SUMMARY | 2025-05-05 16:36 | XMS_ITS | Encounter Summary ---
Author Organization [facility] Address [address] [place] [address] Care Team Providers Care Analytical Lab Technician Name Role Phone Unavailable Primary Care Provider Unavailabl e Encounter Details Date Type Department Care Team (Latest Contact Info) Description 07/16/2020 Lab Requisition [facility] COVID [address] Through [address] [place] [address] [address] [place] [address] Bernard Gomez PA-C [address] [place] [phone] Encounter for laboratory testing for COVID-19 virus [...] Comments COVID-19 (SARS-COV-2) - [facility] LAB Routine 07/16/2020 3:39 PM EST Encounter for laboratory testing for COVID-19 virus [ICD-10-CM] documented in this encounter Results * COVID-19 (SARS-COV-2) (SEMA4) (07/16/2020 3:39 PM EST) COVID-19 RT-PCR NOT-DETECT ED Not-Detec leslie 07/19/2020 8:43 AM EST [facility] - [facility] Comment:Interpretation: The viral RNA was not detected, making the COVID-19 diagnosis less likely. Clinical correlation is highly recommended.Final report signed by Kayy Castilol, Ph.D., [facility], Laboratory DirectorTests performed at [facility] Nasopharyngeal swab / Unknown 07/16/2020 3:39 PM EST 07/16/2020 3:39 PM EST Narrative BING JOSEPH - 07/19/2020 8:43 AM EST Performed by [facility] [address] [place] [address], CLIA# [id number] and [place] License# [id number] Bernard Gomez PA-C MICROBIOLOGY - GENERAL OR DERABLES Final Result BING JOSEPH documented in this encounter Visit Diagnoses Diagnosis Encounter for laboratory testing for COVID-19 virus documented in this encounter
--- OUTSIDE RECORDS SUMMARY | 2025-05-05 16:36 | XMS_ITS | Clinical Summary ---
Author Organization [facility] Address [address] [place] [address] Care Team Providers Care Group Art Supervisor Name Role Phone Unavailable Primary Care Provider Unavailabl e Social History Tobacco Use Types Packs/Day Years Used Date Smoking Tobacco: Never Assessed Sex and Gender Information Value Date Recorded Sex Assigned at Not on file Legal Sex Male 3:01 PM EST Gender Identity Not on file Sexual Orientation Not on file Plan of Treatment Health Maintenance Due Date Last Done Comments Hepatitis C Virus Screening 1976 HIV Screening 1989 DTaP/Tdap/Td Vaccines (1 - Tdap) 1995 Hepatitis B Vaccines (1 of 3 - 19+ 3-dose series) 1995 COVID-19 Vaccine (2023-2 5 season) 2025 Pneumococcal Vaccine: Pediat maria de jesus (0-5 Years) and At-Risk Patients (6 to 49 Years) Aged Out No longer eligible b ased on patient's age to complete this topic
--- OUTSIDE RECORDS SUMMARY | 2025-05-05 16:36 | XMS_ITS ---
[facility] Name [facility] Organization Unknown Results Test Name/Text Value Interpretation Date Range Source Cholest SerPl-mCnc 142.0 mg/dL Normal 01/22/2025 - 200 [facility] LDLc SerPl Calc-mCnc 67.0 mg/dL (calc) Normal 01/22/2025 [facility] HDLc SerPl-mCnc 57.0 mg/dL Normal 01/22/2025 - QU EST Trigl SerPl-mCnc 96.0 mg/dL Normal 01/22/2025 - 150 [facility] NonHDLc SerPl-mCnc 85.0 mg/dL (calc) Normal 01/22/2025 - 130 [facility] Cholest/HDLc SerPl 2.5 (calc) Normal 01/22/2025 - 5 [facility] Est. average glucose Bld gHb Est-mCnc 154.0 mg/dL (calc) 01/22/2025 [facility] HbA1c MFr Bld 6.5 % Above high normal 01/22/2025 - 5.7 [facility] eGFRcr SerPlBld CKD-EPI 2020 87.0 mL/min/1.73m2 Normal 01/22/2025 - [facility] BUN/Creat SerPl SEE NOTE: 01/22/2025 6 - [address] Glucose SerPl-mCnc 105.0 mg/dL Above high normal 01/22/2025 65 - 99 [facility] Sodium SerPl-sCnc 139.0 mmol/L Normal 01/22/2025 135 - 14 6 [facility] Creat SerPl-mCnc 1.06 mg/dL Normal 01/22/2025 0.6 - 1.29 [facility] Potassium SerPl-sCnc 4.7 mmol/L Normal 01/22/2025 3.5 - 5.3 [facility] Calcium SerPl-mCnc 9.7 mg/dL Normal 01/22/2025 8.6 - 10.3 [facility] Chloride SerPl-sCnc 103.0 mmol/L Normal 01/22/2025 98 - 1 10 [facility] BUN SerPl-mCnc 18.0 mg/dL Normal 01/22/2025 7 - [address] CO2 SerPl-sCnc 27.0 mmol/L Normal 01/22/2025 20 - 32 [facility] EST INR PPP 1.0 Normal 08/14/2023 0.8 - 1.1 [facility] PT TIME PPP 11.8 sec Normal 08/14/2023 10.5 - 13.3 [facility] AP[facility] TIME PPP 28.0 sec Normal 08/14/2023 22 - 35 [facility] HCO3 SER SCNC 27.0 mmol/L Normal 08/14/2023 24 - 32 [facility] CREAT SERPL MCNC 1.0 mg/dL Normal 08/14/2023 0.7 - 1.3 [facility] CALCIUM SERPL MCNC 9.4 mg/dL Normal 08/14/2023 8.4 - 10.2 [facility] CHLORIDE SERPL SCNC 97.0 mmol/L Below low normal 08/14/2023 98 - 107 [facility] Glomerular filtration rate/1.73 sq M. predicted 93.0 Normal 08/14/2023 60 - [facility] POTASSIUM SERPL SCNC 4.3 mmol/L Normal 08/14/2023 3.5 - 5.1 [facility] BUN SERPL MCNC 15.0 mg/dL Normal 08/14/2023 9 - 20 [facility] GLUCOSE SERPL MCNC 409.0 mg/dL Above high normal 08/14/2023 70 - 199 [facility] SODIUM SERPL SCNC 133.0 mmol/L Below low normal 08/14/2023 1 35 - 145 [facility] ANION GAP SERPL SCNC 9.0 mmol/L Normal 08/14/2023 5 - 14 [facility] BILIRUB DIRECT SERPL MCNC 0.2 mg/dL Normal 08/14/2023 0 - 0.2 [facility] BILIRUB SERPL MCNC 0.7 mg/dL Normal 08/14/2023 0.3 - 1 [facility] AMYLASE SERPL CCNC 26.0 U/L Below low normal 08/14/2023 29 - 103 [facility] N GONORRHOEA RRNA UR QL PCR NEGATIVE Normal 08/15/2023 - [facility] C TRACH RRNA UR QL PCR NEGATIVE Normal 08/15/2023 - [facility] LIPASE SERPL CCNC 33.0 U/L Normal 08/14/2023 11 - 82 C [facility] SPECIMEN SOURCE TIP OF PENIS Normal 08/14/2023 [facility] ALP SERPL-CCNC 76.0 U/L Normal 08/14/2023 34 - 104 [facility] AST SERPL CCNC 14.0 U/L Normal 08/14/2023 5 - 40 [facility] LDH SERPL L TO P CCNC 144.0 U/L Normal 08/14/2023 125 - 220 [facility] ALT SERPL CCNC 15.0 U/L Normal 08/14/2023 7 - 52 [facility] EOSINOPHIL NFR BLD AUTO 2.5 % Normal 08/14/2023 0 - 6 [facility] NEUTROPHILS NO. BLD AUTO 6.4 K/uL Normal 08/14/2023 1.8 - 7.8 [facility] LYMPHOCYTES NFR BLD AUTO 24.8 % Normal 08/14/2023 20 - 48 [facility] MCV RBC AUTO 91.5 fL Normal 08/14/2023 78 - 100 [facility] BASOPHILS IN BLOOD BY AUTOMATED COUNT 0.0 K/uL Normal 08/14/2023 0 - 0.2 [facility] EOSINOPHIL NO. BLD AUTO 0.3 K/uL Normal 08/14/2023 0 - 0.5 [facility] MCHC RBC AUTO MCNC 34.5 g/dL Normal 08/14/2023 32 - 36 [facility] HCT VFR BLD AUTO 45.5 % Normal 08/14/2023 40 - 54 [facility] MONOCYTES NO. BLD AUTO 0.9 K/uL Above high normal 08/14/2023 0 - 0.8 [facility] NUCLEATED RBC 0.0 % Normal 08/14/2023 0 - 1 [facility] IMMATURE GRANULOCYTE, PERCENT 0.3 % Normal 08/14/2023 0 - 1 [facility] IMMATURE GRANULOCYTE, ABSOLUTE 0.03 k/uL Normal 08/14/2023 - 0.1 [facility] RBC NO. BLD AUTO 4.97 M/uL Normal 08/14/2023 4.7 - 6 CT [facility] NEUTROPHILS NFR BLD AUTO 63.4 % Normal 08/14/2023 44 - 74 [facility] MONOCYTES NFR BLD AUTO 8.7 % Normal 08/14/2023 2 - 12 [facility] RDW RBC AUTO RTO 12.3 % Normal 08/14/2023 12.1 - 17.7 [facility] PLATELET NO. BLD AUTO 234.0 K/uL Normal 08/14/2023 150 - 450 [facility] LYMPHOCYTES NO. BLD AUTO 2.5 K/uL Normal 08/14/2023 1 - 3.2 [facility] MCH RBC QN AUTO 31.6 pg Normal 08/14/2023 25 - 33 [facility] BASOPHILS NFR BLD AUTO 0.3 % Normal 08/14/2023 0 - 2 [facility] WBC NO. BLD AUTO 10.1 K/uL Normal 08/14/2023 4 - 10.5 [facility] PMV BLD AUTO 10.1 fL Normal 08/14/2023 7.4 - 11.4 [facility] HGB BLD MCNC 15.7 g/dL Normal 08/14/2023 13.5 - 18 [facility] MAGNESI[facility] MCNC 2.2 mg/dL Normal 08/14/2023 1.7 - 2.8 [facility] Prot Ur Ql Strip.auto NEGATIVE Normal 08/14/2023 - [facility] Glucose Ur Ql Strip.auto >1000 Abnormal 08/14/2023 - [facility] Nitrite Ur Ql Strip.auto NEGATIVE Normal 08/14/2023 - [facility] Hgb Ur Ql Strip.auto NEGATIVE Normal 08/14/2023 - [facility] Clarity Ur Refract.auto CLEAR Normal 08/14/2023 [facility] Ketones Ur Ql Strip.auto NEGATIVE Normal 08/14/2023 - [facility] Sp Gr Ur Strip.auto 1.01 Normal 08/14/2023 1.005 - 1 .03 [facility] Leukocyte esterase Ur Ql Strip.auto NEGATIVE Normal 08/14/2023 - [facility] pH Ur Strip.auto 6.5 Normal 08/14/2023 4.5 - 8 [facility] SPECIMEN SOURCE XXX URINE CLEAN CATCH Normal 08/14/2023 [facility] History of Medication Use Medication Directions Dispensed Refills Start Date End Date Status varenicline tartrate 0.5 mg tablet Take 1 tablet twice a day by oral route for 30 days. 5 active amlodipine 5 mg-valsartan 160 mg tablet TAKE 1 TABLET BY MOUTH EVERY DAY 09/30/19 25 completed hydrochlorothiazide 25 mg tablet TAKE 1 TABLET BY MOUTH EVERY DAY 09/30/19 25 completed oxycodone 5 mg tablet TAKE 1 TABLET BY MOUTH EVERY 6 HOURS NEEDED FOR PAIN 09/30/19 25 completed tamsulosin 0.4 mg capsule TAKE 1 CAPSULE BY MOUTH EVERY DAY 09/30/19 25 completed varenicline tartrate 0.5 mg tablet active lidocaine (PF) 100 mg/5 mL (2 %) injection syringe active triamcinolone acetonide 40 mg/mL suspension for injection active amlodipine 5 mg-valsartan 160 mg tablet TAKE 1 TABLET BY MOUTH EVERY DAY active amlodipine 5 mg-valsartan 160 mg-hydrochlorothiazide 25 mg tablet Take by oral route for 90 days. active amlodipine 5 mg-valsartan 160 mg-hydrochlorothiazide 25 mg tablet TAKE 1 TABLET BY MOUTH EVERY DAY active ergocalciferol (vitamin D2) 1,250 mcg (50,000 unit) capsule TAKE 1 CAPSULE (50,000 UNITS TOTAL) BY MOUTH ONCE WEEKLY active ergocalciferol (vitamin D2) 1,250 mcg (50,000 unit) capsule TAKE 1 CAPSULE (50,000 UNITS TOTAL) BY MOUTH ONCE WEEKLY active hydrochlorothiazide acti ve hydrochlorothiazide 25 mg tablet TAKE 1 TABLET BY MOUTH EVERY DAY active Trijardy XR active Trijardy XR 12.5 mg-2.5 mg-1,000 mg tablet, extended release TAKE 2 TABLETS BY MOUTH EVERY DAY active Trijardy XR 12.5 mg-2.5 mg-1,000 mg tablet, extended release TAKE 2 TABLETS BY MOUTH EVERY DAY active varenicline tartrate 0.5 mg tablet TAKE 1 TABLET BY MOUTH TWICE A DAY active Allergies Allergen Reaction Severity Comment Documented Date Source Statu s GLATIRAMER ACETATE HIVES [facility] Problems Problem Status Onset Date Problem Type Date of Resoluti on Source Pain of right knee joint active 2025-01-29 ProblemAct [facility] Effusion of joint of right knee active 2025-01-02 ProblemAct [facility] Osteoarthritis of right knee joint active 2025-01-02 ProblemAct [facility] Arthritis of acromioclavicular joint active 2017-06-12 ProblemAct [facility] Multiple sclerosis active 2023-04-23 ProblemAct [facility] Partial thickness rotator cuff tear active 2017-06-12 ProblemAct [facility] Essential hypertension active 2023-04-23 ProblemAct [facility] Encounters Encounter Type Encounter Reason Primary Diagnosis Location Date Ambulatory [facility] 04/15/2025 Ambulatory [facility] 03/11/2025 Ambulatory [facility] 02/18/2025 Ambulatory [facility] 02[facility]04/2025 Ambulatory [facility] 01/29/2025 Ambulatory [facility] 01/22/2025 Ambulatory [facility] 01/15/2025 Ambulatory [facility] 01/02/2025 Ambulatory [facility] 12/11/2024 Ambulatory [facility] 11/05/2024 Ambulatory [facility] 10/02/2024 Ambulatory [facility] 09[facility]30/2024 Ambulatory [facility] 09[facility]30/2024 Ambulatory [facility] 09/19/2024 Ambulatory [facility] 08/29/2024 Ambulatory [facility] 03/03/2024 Ambulatory [facility] 02/29/2024 Ambulatory [facility] 02/29/2024 Ambulatory [facility] 02/29/2024 Ambulatory [facility] 02/29/2024 Emergency Other specified disorders of penis Other specified disorders of penis [facility] 08/14/2023 Care Team Organization Name Specialty Phone Email Start Date End Da te [facility] 2024 [facility] 02/21/2024 05/14/2024 [facility] 08/26/2023 [facility] 0 08/26/2023 02/09/2025 [facility] 202302/09/2025 [facility] 024 08/14/2023 [facility] 07/18/2023 05/14/2024
--- OUTSIDE RECORDS SUMMARY | 2025-05-05 16:36 | XMS_ITS | Clinical Summary ---
Author Organization [address] [facility] Address [address] [place] [address] Phone Care Team Providers Care Health Concierge Name Role Phone Saud Mott Primary Care Provider Allergies Active Allergy Reactions Criticality Noted Date Comments Glatiramer Hives 10/18/2020 Medications amLODIPine-vals jennifer-hcthiazid 5-160-25 mg tablet Take 1 tablet by mouth 1 (one) time each day. 08/23/2023 Active empaglifloz-joann aglip-metformin (Trijardy XR) 12.5-2.5-1,000 mg tablet, IR - ER, biphasic 24hr Take 2 tablets by mouth 1 (one) time each day. 09/06/2023 Active ergocalciferol (VITAMIN D-2) 1,250 mcg (50,000 unit) capsule Take 1 capsule (50,000 Units total) by mouth 1 (one) time per week. 4 each 06/26/2024 Active varenicline tartrate (CHANTIX) 0.5 mg tablet Take 1 tablet (0.5 mg total) by mouth 2 (two) times a day. 10/02/2024 Active Active Problems Problem Noted Date Diagnosed Date Essential hypertension 04/23/2023 Multiple sclerosis 04/23/2023 AC (acromioclavicular) arthritis 06/12/2017 Incomplete tear of right rotator cuff 06/12/2017 Surgical History Surgery Date Site/Laterality Comments SHOULDER ARTHROSCOPY 07/25/2017 Right PROCEDURE:SHOULDER ARTHROSCOPY;COMMENT:Procedure: ARTHROSCOPY SHOULDER ,.debridment of partial RC tear; Surgeon: Kamaljit Jose MD; Location: [facility]; Service: CSMI; Laterality: Right; SHOULDER ARTHROSCOPY 07/25/2017 Right PROCEDURE:SHOULDER ARTHROSCOPY;COMMENT:Procedure: AC EXCISION; Surgeon: Kamaljit Jose MD; Location: [facility]; Service: CSMI; Laterality: Right; ROTATOR CUFF REPAIR Right PROCEDURE:ROTATOR CUFF REPAIR Medical History Medical History Date Comments MS (multiple sclerosis) DX:MS (m ultiple sclerosis) ([facility]) Social History Tobacco Use Types Packs/Day Years Used Date Smoking Tobacco: Every Day Cigarettes 0.5 7.7 Started: 08/06/2017 Smokeless Tobacco: Never Tobacco Cessation:Ready to Q uit: Not Asked; Counseling Given: Not Answered Alcohol Use Standard Drinks/Week Comments Yes 2 (1 standard drink = 0.6 oz pur e alcohol) Sex and Gender Information Value Date Recorded Sex Assigned at Not on file Legal Sex Male 12:20 AM EST Gender Identity Not on file Sexual Orientation Not on file Obstetrics History Last Filed Vital Signs Vital Sign Reading Time Taken Comments Blood Pressure 131/89 11/18/2024 4:01 PM EDT Pulse 83 11/18/2024 4:01 PM EDT Temperature 36.2 C (97.2 F) 06/30/2024 4:01 PM EST Respiratory Rate - - Oxygen Saturation 97% 11/18/2024 4:01 PM EDT Inhaled Oxygen Concentration - - Weight 101 kg (223 lb) 11/18/2024 4:01 PM EDT Height 180.3 cm (5' 11 ) 11/18/2024 4:01 PM EDT Body Mass Index 31.1 11/18/2024 4:01 PM EDT Plan of Treatment Upcoming Encounters Date Type Department Care Team (Late st Contact Info) Description 05/18/2025 4:00 PM EDT Office Visit [facility] [address] [place] [address] Kyrie Delgado MD [address] [place] [address] Health Maintenance Due Date Last Done Comments Hepatitis B Vaccines (1 of 3 - 19+ 3-dose series) 1995 Pneumococcal Vaccine: Pediatrics (0 to 5 Years) and At-Risk Patients (6 to 49 Years) (1 of 2 - PCV) 1995 Cholesterol Screening (Lipid Panel) 07/16/2022 Colorectal Cancer Screening: Colonoscopy 07/16/2022 Social Influencers of Health Screening 07/16/2022 Depression Screening 08/06/2024 COVID-19 Vaccine (3 - 2024-2 6 season) 2025 11/15/2020, 10/25/2020 Influenza Vaccine (#1) 2025 Hypertension/CHF/CAD Annual BMP Blood Test 06/25/2025 06/25/2024, 08/14/2023, 08/14/2023 DTaP,Tdap,and Td Vaccines (2 - Td or Tdap) 12/05/2031 12/04/2021 RSV Immunization Adult Patients (1 - 1-dose 75+ series) 2051 HIV Screening Completed 06/25/2024 Hepatitis C Screening Completed 06/25/2024 HIB Vaccines Aged Out No longer eligi ble based on patient's age to complete this topic HPV Vaccines Aged Out No longer eligi ble based on patient's age to complete this topic Hepatitis A Vaccines Aged Out No long er eligible based on patient's age to complete this topic IPV Vaccines Aged Out No longer eligi ble based on patient's age to complete this topic MMR Vaccines Aged Out No longer eligi ble based on patient's age to complete this topic Meningococcal ACWY Vaccine Aged Out N o longer eligible based on patient's age to complete this topic Meningococcal B Vaccine Aged Out No l onger eligible based on patient's age to complete this topic RSV Immunization Patients Under 20 months Aged Out No longer eligible b ased on patient's age to complete this topic Varicella Vaccines Aged Out No longer eligible based on patient's age to complete this topic Procedures Procedure Name Priority Date/Time Associated Diagnosis Comments HEPATITIS C ANTIBODY Routine 06/25/2024 3:30 PM EST Multiple sclerosis ([facility]/HCC V24, [facility] V28) HIV 1, 2 ANTIBODY, P24 ANTIGEN WITH REFLEX TO DIFFERENTIATION Routine 06/25/2024 3:30 PM EST Multiple sclerosis (CMS/HCC V24, CMS/HCC V28) CREATININE, SERUM Routine 06/25/2024 3:3 0 PM EST Multiple sclerosis (CMS/HCC V24, CMS/HCC V28) from Last 3 Months or Most Recently Relevant to Health Maintenance Results * Hepatitis C antibody (06/25/2024 3:30 PM EST) Pathologist [facility] Hepatitis C Antibody Negative Negative LAB CHEMISTRY METHOD 06/25/2024 7:45 PM EST [facility] Blood Venous blood specimen / Unknown Venipuncture / Unknown 06/25/2024 3:30 PM EST 06/25/2024 3:30 PM EST us Kyrie Delgado MD LAB BLOOD ORDERABLES Fin al Result Performing Organization Address [facility] Co de Phone Number [facility] [address] [place] [id number], [place] [phone] * HIV 1,2 antibody, p24 antigen with reflex to differentiation (06/25/2024 3:30 PM EST) [facility] HIV Combo AB/AG Negative Negative LAB CHEMISTRY METHOD 06/25/2024 7:47 PM EST [facility] Blood Venous blood specimen / Unknown Venipuncture / Unknown 06/25/2024 3:30 PM EST 06/25/2024 3:30 PM EST Narrative [facility] - 06/25/2024 7:47 PM EST This assay is a 4th generation assay allowing for earlier detection of HIV infection by detecting the presence of the HIV-1 p24 antigen as well as the traditional antibodies to HIV type 1 (including group O) and type 2. Use of a 4th generation assay is the current CDC recommendation for HIV screening. us Kyrie Delgado MD LAB BLOOD ORDERABLES Fin al Result Performing Organization Address City/[facility]/ZIP Co de Phone Number [facility] [address] [place] [address], * Creatinine (06/25/2024 3:30 PM EST) Creatinine 1.07 0.70 - 1.30 mg/dL LAB CHEMISTRY METHOD 06/25/2024 6:57 PM EST [facility] eGFR 86 >=60 mL/min/1. 73m2 LAB CHEMISTRY METHOD 06/25/2024 6:57 PM EST [facility] Comment:Calculation based on the Chronic Kidney Disease Epidemiology Collaboration (CKD-EPI) equation refit without adjustment for race. Blood Venous blood specimen / Unknown Venipuncture / Unknown 06/25/2024 3:30 PM EST 06/25/2024 3:30 PM EST Kyrie Delgado MD LAB BLOOD ORDERABLES Fin al Result [facility] [address] [place] [address], [place] [phone] from Last 3 Months or Most Recently Relevant to Health Maintenance Insurance [facility] ELENITA GALLARDO [id number] Care Teams Health Concierge Relationship Specialty Start Date End Date Saud Mott PA [address] [place] [address] PCP - General Maintenance Truck Driver 11/01/20
== END 2025-05-05 15:55 | disposition home or self-care (01) ==
LOC: HO.HOS 15:18
PROVIDERS: PCP Internal Medicine Endocrinology, Diabetes & Metabolism; Visit Provider Orthopaedic Surgery
DX: S83.241A Other tear of medial meniscus, current injury, right knee, initial encounter (principal)
CPT/HCPCS: 99203

== ENCOUNTER → 2025-05-05 15:19 | Outpatient (BNV) | payer OTHER, SELFPAY | PROVIDERS: Visit Provider Radiology Diagnostic Radiology | DX: M25.561 Pain in right knee (principal) | CPT/HCPCS: 73562 ==

== ENCOUNTER 2025-06-05 17:27 | Outpatient (REF) | payer OTHER, SELFPAY ==
--- NOTE | ~2025-06-05 | MR_ITS ---
EXAMINATION: MR KNEE WITHOUT CONTRAST, RIGHT CLINICAL INFORMATION: Medial meniscal tear, injury COMPARISON: None available. TECHNIQUE: MRI of the knee without contrast was performed using routine sequences on a high-field scanner. FINDINGS: MENISCI: Medial Meniscus: Superior surface fraying/ill-defined tear of the posterior root. Complex irregular tearing of the anterior horn. Lateral Meniscus: Complex irregular tearing of the anterior horn. Superior surface and free edge tearing of the body. Body is partially laterally extruded. Horizontal/undersurface tear in the posterior horn. LIGAMENTS: Cruciate: Intact Collateral: Mild MCL sprain. Intact LCL complex. EXTENSOR MECHANISM: Intact ARTICULAR CARTILAGE/BONE: Patellofemoral Compartment: Moderate arthritis. Nonuniform chondral loss, subchondral edema. Medial Compartment: Mild arthritis. Small marginal osteophytes. Mild subchondral femoral edema. Lateral Compartment: Moderate-severe arthritis. Nonuniform chondral loss, including broad area of high-grade/full-thickness chondral loss in the weightbearing compartment. Moderate femoral and tibial edema. No fracture. JOINT FLUID AND BURSAE: Small effusion. Small low signal foci posteriorly, could reflect synovitis or debris. No significant Bansal's cyst. Subcutaneous edema. MR/MR knee RT wo con IMPRESSION: 1. Tear of the medial meniscal anterior horn. Fraying/tear of the posterior root. 2. Tear of the lateral meniscus anterior horn, body and posterior horn. 3. Mild MCL sprain. 4. Lateral compartment and moderate-severe arthritis, with moderate femoral tibial edema. 5. Moderate patellofemoral arthritis. Mild medial compartment arthritis. 6. Small effusion. Mild synovitis/debris. Electronically signed by: Malik Noonan MD 06/08/2025 07:09 AM CORI
--- OUTSIDE RECORDS SUMMARY | 2025-06-05 17:35 | XMS_ITS | Data Portability ---
Author Organization [place] [facility] Address [address] [place] [address] Care Team Providers Care Student Development Specialist Name Role Phone MARGUERITE SONG Primary Care Provider [phone] MARGUERITE SONG Referring Provider [phone] Assessment Encounter Date Assessment Date Assessment LastModified [...] examination, recommended tests/diagnostic imaging, and treatment plan. [email or web address] Not available 02/29/2024 16:30:47 01/02/2025 01/02/2025 Symptomatic [...] may be helpful for control of swelling. [id number]-[id number] anti-inflammatory medications with appropriate GI precautions or [...] also benefit from consideration of a lateral radio electrician brace. Not clear that he would be [...] also benefit from consideration of a lateral radio electrician brace. Not clear that he would be [...] 3 view 2024 025 [email or web address] [facility], [address], [place], [address], 15:37:38 XR, shoulder, 2 or more view 2023 024 [email or web address] [facility], [address], [place], [address], 4 08:41:49 Medication Orders lidocaine (PF) 100 mg/5 mL (2 %) injection syringe 2024 025 [id number], [address] [place], [address], 5 16:39:38 triamcinolo ne acetonide 40 mg/mL suspension for injection 2024 025 [place] [address] [id number], [address] [place], [address], 5 16:39:38 lidocaine (PF) 100 mg/5 mL (2 %) injection syringe 2023 024 [facility] 21 [facility][id number], [address] [place], [address], 4 08:41:49 triamcinolo ne acetonide 40 mg/mL suspension for injection 2023 024 [facility] 21 [facility][id number], [address] [place], [address], 4 08:41:49 Patient TargetsNo targets recorded. Patient Instructions Encounter Date Encounter Id Patient Instructions Last Modified By Organization Details Last Modified Time 02/29/2024 [id number] Radiographs: 4 Views of the Left shoulder were obtained in the [facility] office on 02/29/2024 including AP, Grashey, Y and axillary views. X-rays demonstrated normal bony mineralization. No significant degenerative changes in the AC joint with no widening. . Glenohumoral joint space well-maintained. No abnormal calcifications in the lateral shoulder. No evidence of acute injury or fracture. Interpretation by: Nic Alvarez PA-C [email or web address] Not available 02/29/2024 16:31:11 01/02/2025 [id number] Patient Instructions Following Cortisone Injections Dr. Lomas [...] call Dr. Lomas s office immediately at [phone]. Not available 01/02/2025 15:13:11 3 views of the right knee were obtained on 01/02/2025 in the [facility] office. There is moderate lateral joint space narrowing with marginal osteophyte formation. Subtle marginal osteophyte formation on the medial tibial plateau. Mild retropatellar spurring. Patella tracks centrally. Small enthesophyte from the superior patella. No acute fracture appreciated. Findings: Right knee osteoarthritis as described. Interpreted by: Javier Lomas MD Not available 01/02/2025 15:33:14 01/29/2025 [id number] 3 views of the right knee were obtained on 01/02/2025 in the [facility] office. There is moderate lateral joint space [...] and Address Organization Details Recorded Time Problem 84730503 Active No known active problems Not Available [facility] 23:47:41 Partial thickness rotator cuff tear 972872908 Active 2016 Incomplet e tear of right rotator cuff Not Available [facility] 23:47:41 Arthritis of acromiocl avicular joint 715536420 Active 2016 AC (acromioc lavicular ) arthritis Not Available [facility] 23:47:41 Multiple sclerosis 07337858 Active 2022 Multiple sclerosis Not Available [facility] 23:47:41 Essential hypertens ion 08284692 Active 2022 Essential hypertens ion Not Available [facility] 23:47:41 Osteoarth ritis of right knee joint 30547262168 9100 Active 2024 Javier Lomas MD [address], [place], [address] , [place] [facility] 14:50:42 Effusion of joint of right knee 20992857565 9104 Active 2024 Javier Lomas MD [address], [place], [address] , [place] [facility], P 5 17:04:23 Pain of right knee joint 90061559643 4100 Active 2024 EDILSON KUMAR PA-C [address], [place], [address] , [place] [facility], P 5 14:06:25 Problem Notes None recorded. Procedures Surgical History Date Name Laterality Status Provider Name and Address Organization Details Recorded Time SAB Knee Inj w/US completed Javier Lomas MD [address], [place], [address], [place] [facility] 01/02/2025 15:34:03 4 SUSAN Subacromial Shoulder Inj completed NIC ALVAREZ PA-C [address], [place], [address], [place] [facility] 02/29/2024 16:27:02 Imaging Results None recorded. Procedure Notes None recorded. Medical Equipment None Reported. Allergies Allergen ID Allergen Name Allergen Category Reaction Reaction Severity Criticality Documentation Date Start Date Code Code System Note Provider Name and Address Organization Details Recorded Time 186294 glatirame r acetate medicatio n Not available Not available Not available 04/28/20252020 97849 RxNorm React ion: Hives , sever ity: [...] Updated DateTime 01/29/2025 180.34 cm 30.7 kg/m2 43349.[address] [facility] 01/29/2025 13:35:11 Date Recorded Body height Body mass index (BMI) Body weight Provider Name and Address Organization Details Last Updated DateTime 02/29/2024 180.34 cm 30.7 kg/m2 38514.[address] [facility] 02/29/2024 15:51:08 Date Recorded Body height Body mass index (BMI) Body weight Heart rate Oxygen saturation Oxygen saturation in Arterial blood by Pulse oximetry Systolic And Diastolic Provider Name and Address Organization Details Last Updated DateTime 180.3 cm 31.19 kg/m2 804974 g 76 /min 98 % 98 % 147/87 mm[Hg] Not Available [facility] 01:02:38 Social History None recorded. Functional Status None recorded. Mental Status None recorded. Family History Nothing Reported. Medical History No medical history recorded. Past Encounters Encounter ID Performer Location Encounter Start Date Encounter Closed Date Diagnosis/Indication Diagnosis SNOMED-CT Code Diagnosis ICD10 Code Diagnosis IMO Codes Diagnosis Note [id number] [facility] [address] [facility] [place] [address] 02/29/2024 15:24:56 02/29/2024 16:24:52 Pain of left shoulder region 0768064731 M25.512 Additional diagnosis detail: Left shoulder pain, unspecifie d chronicity [id number] MD BESSIE Braun [address] [facility] [place] [address] 01/02/2025 14:30:15 01/02/2025 15:37:38 Pain of right knee joint 4813818447 41462 M25.561 965508 Osteoarthr itis of right knee joint 1252687940 65412 M17.11 3758032 Effusion o f joint of right knee 6870075668 04351 M25.325 5136015 [id number] [facility] [address] [facility] [address] [place] [address] 01/29/2025 13:29:47 01/29/2025 14:03:36 Osteoarthritis of right knee joint 6210164230 99288 M17.11 6826749 Pain of ri ght knee joint 1353042595 89650 M25.561 133001 Effusion o f joint of right knee 3924576026 54982 M25.984 [id number] Health Concerns Section Related Observation LastModified by Organization Detai ls LastModified Time None Recorded Concern Status LastModified by Organization Details LastModified Time None Recorded Advance Directives Directive None Recorded Payers Insurance Date Sequence Insurance Name Policy Number Policy Lisa Covered Member ID Lisa Member ID Guarantor Name 01/02/2025 1 LINDA [id number] Saqib Ho [id number] Saqib Ho 01/29/2025 1 [facility] [id number] Saqib Ho [id number] Saqib Ho Notes Date Note Type Note [...] ago. 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 He is a daily smoker. NIC ALVAREZ PA-C [address], [place], [address], [place] [facility] 02/29/2024 16:31:56 01/02/2025 text/html ROS as [...] Javier Lomas MD [address], [place], [address], [place] [facility] 01/02/2025 17:06:04 01/29/2025 text/html ROS as [...] EDILSON KUMAR PA-C [address], [place], [address], [place] [facility] 01/29/2025 14:09:31
--- OUTSIDE RECORDS SUMMARY | 2025-06-05 17:35 | XMS_ITS | Clinical Summary ---
Author Organization [facility] Address [address] [place] [address] Care Team Providers Care Occupational Health Manager Name Role Phone Unavailable Primary Care Provider [...]
--- OUTSIDE RECORDS SUMMARY | 2025-06-05 17:35 | XMS_ITS | Encounter Summary ---
Author Organization [facility] Address [address] [place] [address] Care Team Providers Care Forge Tender Name Role Phone Unavailable Primary Care Provider Unavailabl e Encounter Details Date Type Department Care Team (Latest Contact Info) Description 07/16/2020 Lab Requisition [facility] COVID Drive Through [address] [place] [address] [address] [place] [address] Bernard Gomez PA-C [address] [place] [phone] Encounter for laboratory testing for COVID-19 virus [...] recommended.Final report signed by Kayy Castillo, Ph.D., [facility], Laboratory DirectorTests performed at [facility] Nasopharyngeal swab / Unknown 07/16/2020 3:39 PM EST 07/16/2020 3:39 PM EST Narrative BING JOSEPH - 07/19/2020 8:43 AM EST Performed by [facility] [address] [place] [address], CLIA# [id number] and [place] License# [id number] Bernard Gomez PA-C MICROBIOLOGY - GENERAL OR DERABLES Final Result BING JOSEPH documented in this encounter Visit Diagnoses Diagnosis Encounter for laboratory testing for COVID-19 virus documented in this encounter
--- OUTSIDE RECORDS SUMMARY | 2025-06-05 17:35 | XMS_ITS | Data Portability ---
Author Organization [place] - [employer], auto[employer] - [facility] Address [address] [place] [phone] Assessment No assessment recorded. Plan of Treatment Reminders Order Date Submit Date Provider Last Modified By Organization Details Last Modified Time Details Appointments OFFICE VISIT 30 2025 04:00P DC Dahl Not available Not available Not available Lab HbA1c (hemoglob in A1c), blood 2024 025 [email or web address] [id number] p, [address] [place] [address], [phone], 06/02/2025 16:56:02 noninvasi ve colorecta l cancer DNA + occult blood screening , QL, stool 2024 025 [email or web address] [facility], [address], [address], [place], [address], 04/29/2025 16:55:23 urinalysi s, dipstick 2024 025 [email or web address] [id number] p, [address] [place] [address], [phone], 01/28/2025 15:57:22 HbA1c (hemoglob in A1c), blood 2024 025 [email or web address] [id number] p, [address] [place] [address], [phone], 09/30/2024 16:40:25 Referral None recorded. Procedures None recorded. Surgeries None recorded. Imaging electroca rdiogram 2024 [email or web address] [id number] p, [address] [place], [address], 01/28/2025 15:57:22 Medication Orders varenicli ne tartrate 1 mg tablet 2024 025 [facility]acy #[id number], [address] [place], [address], 06/02/2025 16:21:26 varenicli ne tartrate 0.5 mg tablet 2024 025 [facility]/Pharmacy #[id number], [address] [place], [address], 09/30/2024 16:38:38 Patient TargetsNo targets recorded. Patient InstructionsNo instructions recorded. Reason for Referral None Reported. Results Created Date Observation Date Name Description Value Unit Range Abnormal Flag Note LastModifiedBy Organization Detail LastModifiedTime 09/30/1909/30/2024 HbA1c (hemo globi n A1c), blood HbA1c 6.2 Not Available [id number] _[id number] p [address] [place] [address], [phone], 09/30/2024 16:19:08 01/22/20 25 01/22/2025 LIPID PANEL WITH REFLE X TO DIREC T LDL cholesterol, total 142 mg/dL <200 normal Not Available [facility] [address], [address], 01/22/2025 01:08:25 01/22/20 25 01/22/2025 LIPID PANEL WITH REFLE X TO DIREC T LDL HDL cholesterol 57 mg/dL > or = 40 normal Not Available [facility] [address], [address], 01/22/2025 01:08:25 01/22/20 25 01/22/2025 LIPID PANEL WITH REFLE X TO DIREC T LDL triglyceride s 96 mg/dL <150 normal Not Available [facility] [place] [facility] [address], [place], [address], 01/22/2025 01:08:25 01/22/20 25 01/22/2025 LIPID PANEL [...] calcu lated using the Marni n-Hop kins calcu gennaro n, which is a valid ated novel melo mireles roberto r accur acy than the Fried amparo equat ion in the estim ation of LDL-C . Marni osuna SS et al. ISABELL. 2013; 310(1 9): 2061- 2068 (http ://ed ucati on.SmartDocs ([employer]) Lilli [facility] com/f aq/FA Q164) Not Available [facility] [place] [facility] [address], [place], [address], 01/22/2025 01:08:25 01/22/20 25 01/22/2025 LIPID PANEL WITH REFLE X TO DIREC T LDL chol/HDLC ratio 2.5 (calc ) <5.0 normal Not Available [facility] [place] [facility] [address], [place], [address], 01/22/2025 01:08:25 01/22/20 25 01/22/2025 LIPID PANEL WITH REFLE X TO DIREC T LDL non HDL cholesterol 85 mg/dL _(fani c) <130 normal For patie nts with diabe lópez plus 1 major ASCVD risk facto r, treat ing to a non-H DL-C goal of <100 mg/dL (LDL- C of <70 mg/dL ) is consi dered a thera peuti c optio n. Not Available [facility] [place] [facility] [address], [place], [address], 01/22/2025 01:08:25 01/22/2001/22/2025 BASIC METAB OLIC PANEL glucose 105 mg/dL 65-99 high Fasti ng refer ence inter perfecto For someo ne witho ut known diabe lópez, a gluco se value betwe en 100 and 125 mg/dL is consi stent with predi abete s and shoul d be confi rmed with a follo w-up test. Not Available [facility] [address] [place], [place], [address], 01/22/2025 01:08:26 01/22/2001/22/2025 BASIC METAB OLIC PANEL urea nitrogen (BUN) 18 mg/dL 7-25 normal Not Available [facility] [address], [place], [address], 01/22/2025 01:08:26 01/22/2001/22/2025 BASIC METAB OLIC PANEL creatinine 1.06 mg/dL 0.60-1 .29 normal Not Available [facility] [place] [facility] [address], [place], [address], 01/22/2025 01:08:26 01/22/2001/22/2025 BASIC METAB OLIC PANEL eGFR 87 mL/mi n/1.7 3m2 > or = 60 normal Not Available [facility] [address], [place], [address], 01/22/2025 01:08:26 01/22/2001/22/2025 BASIC METAB OLIC PANEL BUN/creatini ne ratio SEE NOTE: (calc ) 6-22 Not Repor leslie: BUN and Creat inine are withi n refer ence range . Not Available [facility] [address] [place], [place], [address], 01/22/2025 01:08:26 01/22/20 25 01/22/2025 BASIC METAB OLIC PANEL sodium 139 mmol/ L 135-14 6 normal Not Available [facility] [place] [facility] [address], [place], [address], 01/22/2025 01:08:26 01/22/20 25 01/22/2025 BASIC METAB OLIC PANEL potassium 4.7 mmol/ L 3.5-5. 3 normal Not Available [facility] [place] [facility] [address], [place], [address], 01/22/2025 01:08:26 01/22/2001/22/2025 BASIC METAB OLIC PANEL chloride 103 mmol/ L 98-110 normal Not Available [facility] [address], [place], [address], 01/22/2025 01:08:26 01/22/20 25 01/22/2025 BASIC METAB OLIC PANEL carbon dioxide 27 mmol/ L 20-32 normal Not Available [facility] [place] [facility] [address], [place], [address], 01/22/2025 01:08:26 01/22/20 25 01/22/2025 BASIC METAB OLIC PANEL calcium 9.7 mg/dL 8.6-10 .3 normal Not Available [facility] [address], [place], [address], 01/22/2025 01:08:26 01/22/20 25 01/21/2025 HEMOG LOBIN A1C WITH MPG hemoglobin A1C [...] Curre ntly, no conse nsus exist s maya mireles use of hemog lobin A1c for diagn osis of diabe lópez for child samir. Not Available [facility] [place] [facility] [address], [place], [address], 01/21/2025 22:46:20 01/22/2001/21/2025 HEMOG LOBIN A1C WITH MPG mean plasma glucose 154 mg/dL _(fani c) Not Available [facility] [place] [facility] [address], [place], [address], 01/21/2025 22:46:20 06/02/20 25 06/02/2025 HbA1c (hemo globi n A1c), blood HbA1c 5.9 Not Available [id number] _pc p [address] [place] [address], [phone], 06/02/2025 16:05:31 01/29/20 [facility] diogr am No observ ation record ed. [email or web address] [id number] p [address] [place] [address], [phone], 01/28/2025 15:27:00 02/04/20 [facility] diogr am No observ ation record ed. [email or web address] [id number] p [address] [place] [address], [address], 02/03/2025 15:23:46 Result Notes None recorded. Problems Name Problem SNOMED Code Status Onset Date Resolution Date Notes Provider Name and Address Organization Details Recorded Time Partial thickness rotator cuff tear 491257563 Active 2016 Incomplete tear of right rotator cuff; YAQ6Wkpkeu ption: Incomplete tear of right rotator cuff; IYJ18Ccyty iption: Incomplete tear of right rotator cuff; ; Not Available [facility] 12:38:24 Arthritis of acromiocl avicular joint 789710446 Active 2016 AC (acromiocl avicular) arthritis; DGN6Sltasg ption: AC (acromiocl avicular) arthritis; QFE05Qanjs iption: AC (acromiocl avicular) arthritis; dlname: Rebeca; dfname: Kamaljit; Physician_ Suffix: MD; Physician_ Phone: tel:[phone]; Physician_ Fax: fax:[phone]; Physician_ Specialty: Orthopedic s; Physician_ Addr1: [address]; Physician_ Addr2: [address]; Physician_ City: [place]; Physician_ State: [place]; Physician_ PostalCode : [address]; ; Not Available [facility] 12:38:25 Multiple sclerosis 87672266 Active 2022 Multiple sclerosis; NYA4Kfjxzl ption: Multiple sclerosis; SHB64Xntft iption: Multiple sclerosis; ; Not Available [facility] 12:38:24 Essential hypertens ion 26391291 Active 2022 Essential hypertensi on; OUI3Azpmll ption: Essential hypertensi on; SGV77Gyozg iption: Essential hypertensi on; dlname: Sanchez; dfname: Guille; Physician_ Suffix: ; Physician_ Specialty: Internal Medicine; ; Not Available [facility] 12:38:24 Problem Notes None recorded. Procedures Surgical History Date Name Laterality Status Provider Name and Address Organization Details Recorded Time Celina arthrs srg rt8tr cuf rpr completed Not Available [facility] 10/14/2024 04:06:26 Imaging Results None recorded. Procedure Notes None recorded. Medical Equipment None Reported. Allergies Allergen ID Allergen Name Allergen Category Reaction Reaction Severity Criticality Documentation Date Start Date Code Code System Note Provider Name and Address Organization Details Recorded Time 17614 glatirame r acetate medicatio n hives Not available Not available 09/15/20242020 34600 RxNorm React ion: Hives ; Comme nt: dfnam e: Ellie ; dlnam e: Edward nese; Physi cian_ Addr1 : [address]; Physi cian_ Addr2 : [facility]; Physi cian_ City: [facility] ord; Physi cian_ State : [place]; Physi cian_ Posta lCode : [address] ; Physi cian_ Suffi x: [place]; ; Not Available [facility] 08:38:51 Medications Name Sig Start Date Stop Date Status Note LastModified by Organization Details LastModified Time tamsulosin 0.4 mg capsule TAKE 1 CAPSULE BY MOUTH EVERY DAY 09/30 completed Not Available Not Available Not Available hydrochlorot hiazide 25 mg tablet TAKE 1 TABLET BY MOUTH EVERY DAY active Not Available Not Available No t Available ergocalcifer ol (vitamin D2) 1,250 mcg (50,000 unit) capsule TAKE 1 CAPSULE (50,000 UNITS TOTAL) BY MOUTH ONCE WEEKLY active Not Available Not Available No t Available oxycodone 5 mg tablet TAKE 1 TABLET BY MOUTH EVERY 6 HOURS NEEDED FOR PAIN 09/30 completed Not Available Not Available Not Available varenicline tartrate 1 mg tablet Take 1 tablet twice a day by oral route. 2024 active Not Available Not Available Not Avai lable varenicline tartrate 0.5 mg tablet Take 1 tablet twice a day by oral route for 30 days. 2024 active Not Available Not Available Not Avai lable amlodipine 5 mg-valsartan 160 mg tablet TAKE 1 TABLET BY MOUTH EVERY DAY active Not Available Not Available No t Available amlodipine 5 mg-valsartan 160 mg-hydrochlo rothiazide 25 [...] and Address Organization Details Last Updated DateTime 02/25/202 5 180.29 cm 542941. 69 g 97 % 97 % 98 /min 31.3 kg/m2 110/70 mm[Hg] Mirnacade [facility] 16:26:18 Date Recorded Body height Heart rate Oxygen saturation Oxygen saturation in Arterial blood by Pulse oximetry Body temperature Body mass index (BMI) Body weight Systolic And Diastolic Provider Name and Address Organization Details Last Updated DateTime 5 180.34 cm 88 /min 99 % 99 % 98.2 [degF] 32.4 kg/m2 836299. 43 g 123/83 mm[Hg] Andreia [facility] 15:10:47 Date Recorded Body height Body weight Body mass index (BMI) Oxygen saturation Oxygen saturation in Arterial blood by Pulse oximetry Heart rate Systolic And Diastolic Provider Name and Address Organization Details Last Updated DateTime 180.34 cm 884627. 47 g 31.7 kg/m2 99 % 99 % 92 /min 116/78 mm[Hg] [facility] 16:[facility] Social History None recorded. Functional Status None recorded. Mental Status None recorded. Family History Nothing Reported. Medical History No medical history recorded. Past Encounters Encounter ID Performer Location Encounter Start Date Encounter Closed Date Diagnosis/Indication Diagnosis SNOMED-CT Code Diagnosis ICD10 Code Diagnosis IMO Codes Diagnosis Note [id number] DC Zimmerman [id number] [address] [place] [phone] 09/30/2024 16:16:56 09/30/2024 16:39:52 Type 2 diabetes mellitus 68097614 E11.9 - stable on Trijardy- repeat labs at physical in 4 months- patient likely statin candidate, will review at that visit with him Essential hypertension 33897663 I10 - stable, continue current therapy Smoker 36589245 F17.200 - trial of chantix- currently smoking 1 PPD- follow up in 1 month- smoking cessation advised Multiple sclerosis 58332 007 G35 - stable, followed by neurology [id number] DC Zimmerman [id number] [id number] [address] [place] [phone] 01/28/2025 15:02:54 01/28/2025 15:44:14 Physical examination 5221066 Z00.00 195438 Cologuard orderedTda p 2021Flu declinedCo vid declined Essential hypertension 78033455 I10 - stable, continue current therapy Type 2 ricardo betes mellitus 14798997 E11.9 37428590 - stable on Trijardy- A1c 6.5- patient defers statin for now, LDL is at goal already < 70- follow up and A1c in 4 months Multiple sclerosis 76616 007 G35 - stable, followed by neurology Screening for malignant neoplasm of colon 542379554 Z12.11 258653 - cologuard ordered Cigarette smoker 6509578 7 F17.210 504472 - on Chantix once per day, down to 1/2 PPD- smoking cessation again advised [id number] DC Zimmerman [id number] A_PCP [address] [place] [id number] 06/02/2025 15:56:57 06/02/2025 16:39:54 Type 2 diabetes mellitus 15053790 E11.9 19860236 - Patient presents for diabetes management follow-up with improved glycemic control- Hemoglobin A1c decreased from previous 6.5% to current 5.9%, approachin g normal range- Currently on Trijardy with good response and reports intention to improve dietary habits- Plan:a. Continue current Trijardy regimenb. Consider transition to metformin/ empagliflo zin if next A1c remains in 5s range and stays below 7%c. Follow-up in 4 months with repeat A1cd. Patient to continue dietary modificati ons, particular ly reducing sweets Cigarette smoker 3672637 7 F17.210 876281 - Patient reports ongoing difficulty with smoking cessation- Currently prescribed smoking cessation medication but experienci ng reduced effectiven ess with generic formulatio n- Patient was taking medication once daily instead of prescribed twice daily dosing- Plan:a. Increase smoking cessation medication to 1 mgb. Prescribe twice daily dosing, though patient may continue once daily at higher dose if preferred Health Concerns Section Related Observation LastModified by Organization Detai ls LastModified Time None Recorded Concern Status LastModified by Organization Details LastModified Time None Recorded Advance Directives Directive None Recorded Payers Insurance Date Sequence Insurance Name Policy Number Policy Lisa Covered Member ID Lisa Member ID Guarantor Name 05/30/2025 1 [facility] [id number] Saqib Ho [id number] Saqib Ho Notes Date Note Type Note Provider Name and Address Organization Details Recorded Time 09/30/2024 text/html Doing well overall, no concerns. A1c 6.2. Has been eating more jelly beans lately. MS in remission. Sees neurology every 6 months. BP stable. Medication compliant. DC Zimmerman [address] [place] [address], [phone], [facility] 09/30/2024 16:40:17 01/28/2025 text/html The patient [...] possibility of removing bone spurs. DC Zimmerman [address] [place] [address], [phone], [facility] 01/28/2025 15:41:00 06/02/2025 text/html ROS as noted in the HPI Saqib presents today for follow-up of diabetes management. His most recent hemoglobin A1c is 5.9, which represents the lowest value he has ever achieved and is approaching normal range, down from his previous level of 6.5. He reports plans to improve his dietary habits by watching what he eats and staying away from sweets. He is currently taking Trijardy, a three-component diabetes medication, and expresses willingness to continue his current regimen given the positive results.Regarding smoking cessation, he reports not doing great with quitting. He describes issues with the generic version of his smoking cessation medication, stating that a previous brand made cigarettes taste nasty for about a week and a half, leading him to throw them away. However, the current generic version initially made cigarettes taste bad for the first two weeks, but this effect has worn off. He acknowledges he should be taking the medication twice daily but admits to only taking it once a day.He mentions not receiving vitamin D from [facility] pharmacy as expected but indicates willingness to take an lkhd-ujk-kncewni version if recommended. The patient has a medical history of diabetes mellitus and hypertension. He is a current smoker and reports difficulty with smoking cessation despite medication trial, mentioning cigarettes tasting nasty initially on cessation medication but the effect has diminished. DC Zimmerman [address] [place] [address],[place], [phone], [facility] 06/02/2025 16:28:27
--- OUTSIDE RECORDS SUMMARY | 2025-06-05 17:35 | XMS_ITS | Encounter Summary ---
Author Organization [facility] Address [address] [id number] Care Team Providers Care Bonding Machine Operator Name Role Phone Unavailable Primary Care Provider Unavailabl e Encounter Details Date Type Department Care Team (Latest Contact Info) Description 09/14/2020 Lab Requisition [facility] [address] Through [address] [place] [address] [address] [place] [address] Sharad Ness MD [address] [place] [address] Encounter for laboratory testing for [...] Lele Juarez, Ph.D., Laboratory DirectorTests performed at [facility] Microbiology Nasopharyngeal swab / Unknown 09/14/2020 11:55 AM EST 09/14/2020 11:55 AM EST Narrative BING JOSEPH - 09/15/2020 8:07 AM EST Performed by [facility] [address] [place] [address], CLIA# [id number] and [place] License# [id number] us Sharad Ness MD MICROBIOLOGY - GENERAL ORDER TERRI Final Result BING JOSEPH documented in this encounter Visit Diagnoses Diagnosis Encounter for laboratory testing for COVID-19 virus documented in this encounter
--- OUTSIDE RECORDS SUMMARY | 2025-06-05 17:35 | XMS_ITS | Encounter Summary ---
Author Organization [facility] Address [address] [place] [address] Care Team Providers Care Commercial Account Executive Name Role Phone Unavailable Primary Care Provider Unavailabl e Encounter Details Date Type Department Care Team (Latest Contact Info) Description 07/21/2020 Lab Requisition [facility] [address] Through [address] [place] [address] [address] [place] [address] Bernard Gomez PA-C [address] [place] [phone] Encounter for laboratory testing for COVID-19 virus [...] Bisram Deocharan, Ph.D., Laboratory DirectorTests performed at [facility] Micro[facility] Nasopharyngeal swab / Unknown 07/21/2020 1:09 PM EST 07/21/2020 1:09 PM EST Narrative BING JOSEPH - 07/23/2020 5:25 PM EST Performed by [facility] [address] [place] [address], CLIA# [id number] and [place] License# [id number] Bernard Gomez PA-C MICROBIOLOGY - GENERAL OR DERABLES Final Result BING JOSEPH documented in this encounter Visit Diagnoses Diagnosis Encounter for laboratory testing for COVID-19 virus documented in this encounter
--- OUTSIDE RECORDS SUMMARY | 2025-06-05 17:35 | XMS_ITS | Continuity of Care Document ---
Author Organization [facility] [employer] [facility], [id number] Address [address] [place] [id number] Assessment No assessment recorded. Plan of Treatment Reminders Order Date Submit Date Provider Last Modified By Organization Details Last Modified Time Details Appointments OFFICE VISIT 30 2025 04:00P M DC Zimmerman Not available Not available Not available Lab HbA1c (hemoglob in A1c), blood 2024 025 [id number] p, [address] [place] [address], , 06/02/2025 16:56:02 Referral None recorded. Procedures None recorded. Surgeries None recorded. Imaging None recorded. Medication Orders varenicli ne tartrate [address] [facility] #[id number], [address] [place] [address], [id number], 06/02/2025 16:21:26 Patient TargetsNo targets recorded. Patient InstructionsNo instructions recorded. Reason for Referral None Reported. Results Created Date Observation Date Name Description Value Unit Range Abnormal Flag Note LastModifiedBy Organization Detail LastModifiedTime 06/02/2006/02/2025 HbA1c (hemo globi n A1c), blood HbA1c 5.9 Not Available [id number] _[id number] p [address] [place] [address], , 06/02/2025 16:05:31 Result Notes None recorded. Problems Name Problem SNOMED Code Status Onset Date Resolution Date Notes Provider Name and Address Organization Details Recorded Time Partial thickness rotator cuff tear 940099559 Active 2016 Incomplete tear of right rotator cuff; JNL3Gmjako ption: Incomplete tear of right rotator cuff; TVA08Hnxgy iption: Incomplete tear of right rotator cuff; ; Not Available [facility] 12:38:24 Arthritis of acromiocl avicular joint 823911782 Active 2016 AC (acromiocl avicular) arthritis; MVI5Jqfiki ption: AC (acromiocl avicular) arthritis; VOT21Oncnx iption: AC (acromiocl avicular) arthritis; dlname: Rebeca; dfname: Kamaljit; Physician_ Suffix: ; Physician_ Phone: tel:[phone]; Physician_ Fax: fax:[phone]; Physician_ Specialty: Orthopedic s; Physician_ Addr1: [address]; Physician_ Addr2: [address]; Physician_ City: [place]; Physician_ State: [place]; Physician_ PostalCode : [address]; ; Not Available [facility] 12:38:25 Multiple sclerosis 13668078 Active 2022 Multiple sclerosis; BUZ5Mwogym ption: Multiple sclerosis; TTO88Lvamp iption: Multiple sclerosis; ; Not Available [facility] 12:38:24 Essential hypertens ion 59941093 Active 2022 Essential hypertensi on; ZZR3Dnldic ption: Essential hypertensi on; RYK32Tccmw iption: Essential hypertensi on; dlname: Sanchez; dfname: Guille; Physician_ Suffix: ; Physician_ Specialty: Internal Medicine; ; Not Available [facility] 12:38:24 Problem Notes None recorded. Procedures Surgical History Date Name Laterality Status Provider Name and Address Organization Details Recorded Time Celina arthrs srg rt8tr cuf rpr completed Not Available [facility] 10/14/2024 04:06:26 Imaging Results None recorded. Procedure Notes None recorded. Medical Equipment None Reported. Allergies Allergen ID Allergen Name Allergen Category Reaction Reaction Severity Criticality Documentation Date Start Date Code Code System Note Provider Name and Address Organization Details Recorded Time 41209 glatirame r acetate medicatio n hives Not available Not available 09/15/20242020 78389 RxNorm React ion: Hives ; Comme nt: dfnam e: Lelie ; dlnam e: Cropa nese; Physi cian_ Addr1 : [address]; Physi cian_ Addr2 : [facility]; Physi cian_ City: [place]; Physi cian_ State : [place]; Physi cian_ Posta lCode : [address] ; Physi cian_ Suffi x: [place]; ; Not Available [facility] 08:38:51 Medications Name Sig Start Date Stop [...] Vitals Date Recorded Body height Body weight Body mass index (BMI) Oxygen saturation Oxygen saturation in Arterial blood by Pulse oximetry Heart rate Systolic And Diastolic Provider Name and Address Organization Details Last Updated DateTime 5 180.34 cm 353123. 47 g 31.7 kg/m2 99 % 99 % 92 /min 116/78 mm[Hg] Mirna Lezama [facility] - [facility] 5 16:06:14 Social History None recorded. Functional Status None recorded. Mental Status None recorded. Family History Nothing Reported. Medical History No medical history recorded. Past Encounters Encounter ID Performer Location Encounter Start Date Encounter Closed Date Diagnosis/Indication Diagnosis SNOMED-CT Code Diagnosis ICD10 Code Diagnosis IMO Codes Diagnosis Note [id number] DC Zimmerman [id number] [address] [place] [id number] 06/02/2025 15:56:57 06/02/2025 16:39:54 Type 2 diabetes mellitus 06870503 E11.9 62053097 - Patient presents for diabetes management follow-up [...] ons, particular ly reducing sweets Cigarette smoker 9326788 7 F17.210 697801 - Patient reports ongoing difficulty with smoking [...] by Organization Details LastModified Time None Recorded Payers Encounter Date Sequence Insurance Name Policy Number Policy Lisa Covered Member ID Lisa Member ID Guarantor Name 06/02/2025 1 [facility] [id number] Saqib Ho [id number] Saqib Ho Notes Date Note Type Note Provider Name and Address Organization Details Recorded Time 06/02/2025 text/html ROS as noted in the [...] day.He mentions not receiving vitamin D from [facility] pharmacy as expected but indicates willingness to take an qpnx-ljw-jrxcsse version if recommended. The patient has a medical history of diabetes mellitus and hypertension. He is a current smoker and reports difficulty with smoking cessation despite medication trial, mentioning cigarettes tasting nasty initially on cessation medication but the effect has diminished. DC Zimmerman [address] [place] [address], [phone], [facility] 06/02/2025 16:28:27
--- OUTSIDE RECORDS SUMMARY | 2025-06-05 17:35 | XMS_ITS | Clinical Summary ---
Author Organization [facility] Address [address] [place] [address] Care Team Providers Care Portfolio Analyst Name Role Phone Saud Mott PA-C Primary Care Provider [phone] Allergies Active Allergy Reactions Criticality Noted Date Comments Glatiramer Hives 10/18/2020 Medications Medication Sig Dispensed Refills Start Date End Date Status amLODIPine-valsartan -HCTZ (Exforge HCT) 5-160-25 MG TABS Take 1 tablet by mouth daily. 90 tablet 1 01/09/2024 Active Trijardy XR 12.5-2.5-1000 MG MD32Tytyjocayty:Type 2 diabetes mellitus without complication, without long-term [...] place to sleep or slept in a group home (including now)? No 01/25/2024 Sex and Gender [...] age to complete this topic Care Teams Portfolio Analyst Relationship Specialty Start Date End Date Saud Mott PA-C PCP - General Provider Scribe 11/01/20
--- OUTSIDE RECORDS SUMMARY | 2025-06-05 17:35 | XMS_ITS | Clinical Summary ---
Author Organization [facility] Address [address] [place] [address] Phone Care Team Providers Care Soaping Department Supervisor Name Role Phone Saud Mott Primary Care Provider [phone] Allergies Active Allergy Reactions Criticality Noted Date Comments Glatiramer Hives 10/18/2020 Medications amLODIPine-perfecto sartan-hcthiaz id 5-160-25 mg tablet Take 1 tablet by mouth 1 (one) time each day. 4 Active empaglifloz-li naglip-metform in (Trijardy XR) 12.5-2.5-1,000 mg tablet, IR - ER, biphasic 24hr Take 2 tablets by mouth 1 (one) time each day. 4 Active varenicline tartrate (CHANTIX) 0.5 mg tablet Take 1 tablet (0.5 mg total) by mouth 2 (two) times a day. 5 Active hydroCHLOROthi azide (HYDRODIURIL) 25 mg tablet Take 1 tablet (25 mg total) by mouth 1 (one) time each day. Active ergocalciferol (VITAMIN D-2) 1,250 mcg (50,000 unit) capsule TAKE 1 CAPSULE (50,000 UNITS TOTAL) BY MOUTH ONCE WEEKLY 12 capsule 3 5 Active ergocalciferol (VITAMIN D-2) 1,250 mcg (50,000 unit) capsule Take 1 capsule (50,000 Units total) by mouth 1 (one) time per week. 4 each 11 06/04/20 25 Discontinued Active Problems Problem Noted Date Diagnosed Date Essential hypertension 04/23/2023 Multiple sclerosis 04/23/2023 AC (acromioclavicular) arthritis 06/12/2017 Incomplete tear of right rotator cuff 06/12/2017 Encounters Date Type Department Care Team Description 05/18/2025 4:00 PM EDT Office Visit [address] [place] [address] Kyrie Delgado MD Multiple sclerosis (Primary Dx); Vitamin D deficiency from Last 3 Months Surgical History Surgery Date Site/Laterality Comments SHOULDER ARTHROSCOPY 07/25/2017 Right PROCEDURE:SHOULDER ARTHROSCOPY;COMMENT:Procedure: ARTHROSCOPY SHOULDER ,.debridment of partial RC tear; Surgeon: Kamaljit Jose MD; Location: [facility]; Service: CSMI; Laterality: Right; SHOULDER ARTHROSCOPY 07/25/2017 Right PROCEDURE:SHOULDER ARTHROSCOPY;COMMENT:Procedure: AC EXCISION; Surgeon: Kamaljit Jose MD; Location: [facility]; Service: CSMI; Laterality: Right; ROTATOR CUFF REPAIR Right PROCEDURE:ROTATOR CUFF REPAIR Medical History Medical History Date Comments MS (multiple sclerosis) DX:MS (m ultiple sclerosis) ([facility]) Social History Tobacco Use Types Packs/Day Years Used Date Smoking Tobacco: Every Day Cigarettes 0.5 7.8 Started: 08/06/2017 Smokeless Tobacco: Never Tobacco Cessation:Ready [...] Sign Reading Time Taken Comments Blood Pressure 133/96 05/18/2025 3:47 PM EDT Pulse 89 05/18/2025 3:47 PM EDT Temperature 36.2 C (97.2 F) 06/30/2024 4:01 PM EST Respiratory Rate - - Oxygen Saturation 99% 05/18/2025 3:47 PM EDT Inhaled Oxygen Concentration - - Weight 101 kg (223 lb) 05/18/2025 3:47 PM EDT Height 180.3 cm (5' 11 ) 05/18/2025 3:47 PM EDT Body Mass Index 31.1 05/18/2025 3:47 PM EDT Plan of Treatment Upcoming Encounters Date Type Department Care Team (Late st Contact Info) Description 11/19/2025 4:30 PM EDT Office Visit [facility] [address] [facility] [address] [place] [address] Sayra Allen, [place] [address] [place] [phone] Health Maintenance Due Date Last Done Comments [...] Routine 06/25/2024 3:30 PM EST Multiple sclerosis ([facility] V24, [facility] V28) HIV 1, 2 ANTIBODY, P24 ANTIGEN WITH REFLEX TO DIFFERENTIATION Routine 06/25/2024 3:30 PM EST Multiple sclerosis ([facility] V24, [facility] V28) CREATININE, SERUM Routine 06/25/2024 3:3 0 PM EST Multiple sclerosis ([facility] V24, [facility] V28) from Last 3 Months or Most Recently Relevant to Health Maintenance Results * Hepatitis C antibody (06/25/2024 3:30 PM EST) Hepatitis C Antibody Negative Negative LAB CHEMISTRY METHOD 06/25/2024 7:45 PM EST [facility] Blood Venous blood specimen / Unknown Venipuncture / Unknown 06/25/2024 3:30 PM EST 06/25/2024 3:30 PM EST Kyrie Delgado MD LAB BLOOD ORDERABLES Fin al Result [facility] [address] [place] [address], * HIV 1,2 antibody, p24 antigen with reflex to differentiation (06/25/2024 3:30 PM EST) HIV Combo AB/AG Negative Negative LAB CHEMISTRY METHOD 06/25/2024 7:47 PM EST [facility] Blood Venous blood specimen / Unknown Venipuncture / Unknown 06/25/2024 3:30 PM EST 06/25/2024 3:30 PM EST Narrative [facility] - 06/25/2024 7:47 PM EST This assay is a 4th generation assay allowing for earlier detection of HIV infection by detecting the presence of the HIV-1 p24 antigen as well as the traditional antibodies to HIV type 1 (including group O) and type 2. Use of a 4th generation assay is the current CDC recommendation for HIV screening. Kyrie Delgado MD LAB BLOOD ORDERABLES Fin al Result [facility] [address] [place] [address], [place] [phone] * Creatinine (06/25/2024 3:30 PM EST) Creatinine 1.07 0.70 - 1.30 mg/dL LAB CHEMISTRY METHOD 06/25/2024 6:57 PM EST [facility] eGFR 86 >=60 mL/min/1. 73m2 LAB CHEMISTRY METHOD 06/25/2024 6:57 PM EST [facility] Comment:Calculation based on the Chronic Kidney Disease Epidemiology Collaboration (CKD-EPI) equation refit without adjustment for race. Blood Venous blood specimen / Unknown Venipuncture / Unknown 06/25/2024 3:30 PM EST 06/25/2024 3:30 PM EST Kyrie Delgado MD LAB BLOOD ORDERABLES Fin al Result [facility] [address] [place] [address], [place] [phone] from Last 3 Months or Most Recently Relevant to Health Maintenance Insurance [address] [address] ELENITA GALLARDO [id number] Care Teams Soaping Department Supervisor Relationship Specialty Start Date End Date Saud Mott PA [address] [place] [id number] PCP - General Corsetier 11/01/20
== END 2025-06-05 17:28 | disposition home or self-care (01) ==
LOC: HO.MRI 17:27
PROVIDERS: Visit Provider Orthopaedic Surgery
DX: S83.241D Other tear of medial meniscus, current injury, right knee, subsequent encounter (principal)
CPT/HCPCS: 73721

== ENCOUNTER → 2025-06-05 17:28 | Outpatient (BNV) | payer OTHER, SELFPAY | PROVIDERS: Visit Provider Radiology Diagnostic Ultrasound | DX: S83.241A Other tear of medial meniscus, current injury, right knee, initial encounter (principal); S83.411A Sprain of medial collateral ligament of right knee, initial encounter; M17.11 Unilateral primary osteoarthritis, right knee; M25.461 Effusion, right knee | CPT/HCPCS: 73721 ==

== ENCOUNTER 2025-06-10 08:06 | Outpatient (AMB) | payer OTHER, SELFPAY ==
--- NOTE | 2025-06-10 08:07 | MHC.OFFVIS ---
Intake Visit Reasons: Right knee pain and giving way Intake Note: Saqib is a 50 year old male who presents with complaints of progressively worsening right knee pain and giving way. The patient states that he 1st injured his right knee several years ago while jumping on a trampoline. He had acute onset of pain along the medial aspect of his knee. He was seen by another orthopedic group approximately 6 months ago. He was given a cortisone injection at that time which gave him only temporary relief. He has failed the last 6 weeks of conservative treatment which has included Tylenol, anti-inflammatory medicines, a home exercise program and physical therapy exercises. The patient states that his right knee will give out several times per day. He has tried wearing a knee brace which gives him mild relief. Allergies No Known Allergies Allergy (Verified 05/05/25 15:27) Medication List - Last Reconciled 06/10/25 by John Saxena MD amlodipine-valsartan 5-160 mg 1 tab PO DAILY meayyunrcbh-rnttdfbv-dbmbcsysv 12.5-2.5-1,000 mg ER (Trijardy XR) 2 tabs PO DAILY ergocalciferol (vitamin D2) 1,250 mcg PO QWEEK hydrochlorothiazide 25 mg PO DAILY varenicline tartrate 0.5 mg PO BID Physical Exam Const Other: Well-nourished well-developed very friendly male awake alert and oriented x3 in no acute distress Extrem Other: Right knee examination shows a minimal effusion, palpable crepitus with range of motion, tenderness along his medial and lateral joint lines, positive Gustavo's test, no instability Results Reviewed Results Reviewed: Standing full weight-bearing x-rays of the patient's right knee show mild to moderate diffuse degenerative changes, no acute bony abnormalities MRI of the patient's right knee shows mild to moderate diffuse degenerative changes as well as tearing of the medial and lateral menisci Assessment & Plan Assessment & Plan (1) Tear of medial meniscus of right knee: Code(s): S83.241A - Other tear of medial meniscus, current injury, right knee, initial encounter Category: Medical Plan Mr. Ho presents with right knee pain and mechanical symptoms due to early degenerative joint disease as well as tearing of his medial and lateral menisci I had a lengthy discussion with the patient regarding the treatment options. He wishes to hold off on total knee replacement surgery for as long as possible. I agree with this plan. The risks and benefits of right knee arthroscopic surgery were discussed at length with the patient. The patient wishes to proceed with surgery. Surgery will involve right knee arthroscopic partial medial and lateral meniscectomies. The patient does understand that he may not get 100% relief of his symptoms depending on the severity of his degenerative changes. He will be scheduled for next available date. He will follow up as instructed. I spent 20 minutes in reviewing the patient's records and imaging studies, seeing the patient and documenting in the medical record. Coding Level of Care Code Est Pt Level 3 (67375) Complex EM visit Add On G2211 Diagnoses Tear of medial meniscus of right knee S83.241A
--- OUTSIDE RECORDS SUMMARY | 2025-06-10 08:12 | XMS_ITS | Data Portability ---
Author Organization [place] [facility] Hector Ramos AONE [place] Address [address] [place] [address] Care Team Providers Care Safety Lamp Keeper Name Role Phone MARGUERITE SONG Primary Care Provider [phone] MARGUERITE SONG Referring Provider [phone] Assessment Encounter Date Assessment Date Assessment LastModified [...] examination, recommended tests/diagnostic imaging, and treatment plan. [email or web address] Not available 02/29/2024 16:30:47 01/02/2025 01/02/2025 Symptomatic [...] may be helpful for control of swelling. Lrtd-xel-yejmpwp anti-inflammatory medications with appropriate GI precautions or [...] also benefit from consideration of a lateral nurses aide brace. Not clear that he would be [...] also benefit from consideration of a lateral nurses aide brace. Not clear that he would be [...] 3 view 2024 025 [email or web address] [facility], [address], [address], [place], [address], 15:37:38 XR, shoulder, 2 or more view 2023 024 [email or web address] 21 [facility], [address], [place], [address], 4 08:41:49 Medication Orders lidocaine (PF) 100 mg/5 mL (2 %) injection syringe 2024 025 [facility] #[id number], [address] [place], [address], 5 16:39:38 triamcinolo ne acetonide 40 mg/mL suspension for injection 2024 025 [place] [address] [id number], [address] [place], [address], 5 16:39:38 lidocaine (PF) 100 mg/5 mL (2 %) injection syringe 2023 024 [facility] 21 [facility] #[id number], [address] [place], [address], 4 08:41:49 triamcinolo ne acetonide 40 mg/mL suspension for injection 2023 024 [facility] 21 [facility] #[id number], [address] [place], [address], 4 08:41:49 Patient TargetsNo targets recorded. Patient Instructions Encounter Date Encounter Id Patient Instructions Last Modified By Organization Details Last Modified Time 02/29/2024 [id number] Radiographs: 4 Views of the Left shoulder were obtained in the [place] office on 02/29/2024 including AP, Grashey, Y and axillary views. X-rays demonstrated normal bony mineralization. No significant degenerative changes in the AC joint with no widening. . Glenohumoral joint space well-maintained. No abnormal calcifications in the lateral shoulder. No evidence of acute injury or fracture. Interpretation by: Nic Alvarez PA-C [email or web address] Not available 02/29/2024 16:31:11 01/02/2025 [id number] Patient Instructions Following Cortisone Injections Dr. Lomas [...] call Dr. Lomas s office immediately at [phone]. Not available 01/02/2025 15:13:11 3 views of the right knee were obtained on 01/02/2025 in the [place] office. There is moderate lateral joint space narrowing with marginal osteophyte formation. Subtle marginal osteophyte formation on the medial tibial plateau. Mild retropatellar spurring. Patella tracks centrally. Small enthesophyte from the superior patella. No acute fracture appreciated. Findings: Right knee osteoarthritis as described. Interpreted by: Javier Lomas MD Not available 01/02/2025 15:33:14 01/29/2025 [id number] 3 views of the right knee were obtained on 01/02/2025 in the [place] office. There is moderate lateral joint space [...] and Address Organization Details Recorded Time Problem 68704158 Active No known active problems Not Available [facility] 23:47:41 Partial thickness rotator cuff tear 176305115 Active 2016 Incomplet e tear of right rotator cuff Not Available [facility] 23:47:41 Arthritis of acromiocl avicular joint 080100689 Active 2016 AC (acromioc lavicular ) arthritis Not Available [facility] 23:47:41 Multiple sclerosis 76273713 Active 2022 Multiple sclerosis Not Available [facility] 23:47:41 Essential hypertens ion 58225938 Active 2022 Essential hypertens ion Not Available [facility] 23:47:41 Osteoarth ritis of right knee joint 92003431425 9100 Active 2024 Javier Lomas MD [address], [place], [address] , [place] [facility] 14:50:42 Effusion of joint of right knee 56779818321 9104 Active 2024 Javier Lomas MD [address], [place], [address] , [place] [facility], [facility] 5 17:04:23 Pain of right knee joint 68644104146 4100 Active 2024 EDILSON KUMAR PA-C [address], [place], [address] , [place] [facility], [facility] 5 14:06:25 Problem Notes None recorded. Procedures Surgical History Date Name Laterality Status Provider Name and Address Organization Details Recorded Time SAB Knee Inj w/US completed Javier Lomas MD [address], [place], [address], [place] [facility] 01/02/2025 15:34:03 4 SUSAN Subacromial Shoulder Inj completed NIC ALVAREZ PA-C [address], [place], [address], [place] [facility] 02/29/2024 16:27:02 Imaging Results None recorded. Procedure Notes None recorded. Medical Equipment None Reported. Allergies Allergen ID Allergen Name Allergen Category Reaction Reaction Severity Criticality Documentation Date Start Date Code Code System Note Provider Name and Address Organization Details Recorded Time 771179 glatirame r acetate medicatio n Not available Not available Not available 04/28/20252020 05440 RxNorm React ion: Hives , sever ity: [...] Updated DateTime 01/29/2025 180.34 cm 30.7 kg/m2 62768.[address] [place] [facility] 01/29/2025 13:35:11 Date Recorded Body height Body mass index (BMI) Body weight Provider Name and Address Organization Details Last Updated DateTime 02/29/2024 180.34 cm 30.7 kg/m2 84834.[address] [place] [facility] 02/29/2024 15:51:08 Date Recorded Body height Body mass index (BMI) Body weight Heart rate Oxygen saturation Oxygen saturation in Arterial blood by Pulse oximetry Systolic And Diastolic Provider Name and Address Organization Details Last Updated DateTime 180.3 cm 31.19 kg/m2 470233 g 76 /min 98 % 98 % 147/87 mm[Hg] Not Available [facility] 01:02:38 Social History None recorded. Functional Status None recorded. Mental Status None recorded. Family History Nothing Reported. Medical History No medical history recorded. Past Encounters Encounter ID Performer Location Encounter Start Date Encounter Closed Date Diagnosis/Indication Diagnosis SNOMED-CT Code Diagnosis ICD10 Code Diagnosis IMO Codes Diagnosis Note [id number] [facility] [address] [facility] [place] [address] 02/29/2024 15:24:56 02/29/2024 16:24:52 Pain of left shoulder region 3852353144 M25.512 Additional diagnosis detail: Left shoulder pain, unspecifie d chronicity [id number] MD BESSIE Braun [address] [facility] [place] [address] 01/02/2025 14:30:15 01/02/2025 15:37:38 Pain of right knee joint 4067039779 14169 M25.561 337282 Osteoarthr itis of right knee joint 7665678387 67436 M17.11 6174916 Effusion o f joint of right knee 8062818589 62191 M25.728 [id number] [facility] [address] [facility] [address] [place] [address] 01/29/2025 13:29:47 01/29/2025 14:03:36 Osteoarthritis of right knee joint 9657626754 39888 M17.11 2144027 Pain of ri ght knee joint 8469054625 04626 M25.561 640846 Effusion o f joint of right knee 3675836038 96445 M25.045 2004177 Health Concerns Section Related Observation LastModified by Organization Detai ls LastModified Time None Recorded Concern Status LastModified by Organization Details LastModified Time None Recorded Advance Directives Directive None Recorded Payers Insurance Date Sequence Insurance Name Policy Number Policy Lisa Covered Member ID Lisa Member ID Guarantor Name 01/02/2025 1 LINDA [id number] Saqib Ho [id number] Saqib Ho 01/29/2025 1 [facility] [id number] Saqib Ho [id number] Saqib Ho Notes Date Note Type Note [...] ago. 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 He is a daily smoker. NIC ALVAREZ PA-C [address], [place], [address], [place] [facility] 02/29/2024 16:31:56 01/02/2025 text/html ROS as [...] Javier Lomas MD [address], [place], [address], [place] [facility] 01/02/2025 17:06:04 01/29/2025 text/html ROS as [...] EDILSON KUMAR PA-C [address], [place], [address], [place] [facility] 01/29/2025 14:09:31
--- OUTSIDE RECORDS SUMMARY | 2025-06-10 08:12 | XMS_ITS | Data Portability ---
Author Organization [place] - [employer] [facility] [employer], [employer] - [facility] Address [address] [place] [address] Assessment No assessment recorded. Plan of Treatment Reminders Order Date Submit Date Provider Last Modified By Organization Details Last Modified Time Details Appointments OFFICE VISIT 30 2025 04:00P DC Dahl Not available Not available Not available Lab HbA1c (hemoglob in A1c), blood 2024 025 [email or web address] [id number] p, [address] [place] [address], [address], 06/02/2025 16:56:02 noninvasi ve colorecta l cancer DNA + occult blood screening , QL, stool 2024 025 [email or web address] [facility], [address], [address], [place], [address], 04/29/2025 16:55:23 urinalysi s, dipstick 2024 025 [email or web address] [id number] p, [address] [place] [address], [address], 01/28/2025 15:57:22 HbA1c (hemoglob in A1c), blood 2024 025 [email or web address] [id number] p, [address] [place] [address], [address], 09/30/2024 16:40:25 Referral None recorded. Procedures None recorded. Surgeries None recorded. Imaging electroca rdiogram 2024 [email or web address] [id number]_mt p, [address] [place], [address], 01/28/2025 15:57:22 Medication Orders varenicli ne tartrate 1 mg tablet 2024 025 [facility] #0084, [address] [place], [address], 06/02/2025 16:21:26 varenicli ne tartrate 0.5 mg tablet 2024 025 [facility] #0084, [address] [place], [address], 09/30/2024 16:38:38 Patient TargetsNo targets recorded. Patient InstructionsNo instructions recorded. Reason for Referral None Reported. Results Created Date Observation Date Name Description Value Unit Range Abnormal Flag Note LastModifiedBy Organization Detail LastModifiedTime 09/30/1909/30/2024 HbA1c (hemo globi n A1c), blood HbA1c 6.2 Not Available [id number]_rmb _pc p [address] [place] [address], [address], 09/30/2024 16:19:08 01/22/20 25 01/22/2025 LIPID PANEL WITH REFLE X TO DIREC T LDL cholesterol, total 142 mg/dL <200 normal Not Available [facility] [address], [address], 01/22/2025 01:08:25 01/22/20 25 01/22/2025 LIPID PANEL WITH REFLE X TO DIREC T LDL HDL cholesterol 57 mg/dL > or = 40 normal Not Available [facility] [address], [address], 01/22/2025 01:08:25 01/22/20 25 01/22/2025 LIPID PANEL WITH REFLE X TO DIREC T LDL triglyceride s 96 mg/dL <150 normal Not Available [facility] [place] [facility] [address], [place], [address], 01/22/2025 01:08:25 01/22/20 25 01/22/2025 LIPID PANEL [...] 310(1 9): 2061- 2068 (http ://ed ucati on.Employyd.com Lilli TV189.com. com/f aq/FA Q164) Not Available [email or web address] [place] [facility] [address], [place], [address], 01/22/2025 01:08:25 01/22/20 25 01/22/2025 LIPID PANEL WITH REFLE X TO DIREC T LDL chol/HDLC ratio 2.5 (calc ) <5.0 normal Not Available [email or web address] [place] [facility] [address], [place], [address], 01/22/2025 01:08:25 01/22/20 25 01/22/2025 LIPID PANEL WITH REFLE X TO DIREC T LDL non HDL cholesterol 85 mg/dL _(fani c) <130 normal For patie nts with diabe lópez plus 1 major ASCVD risk facto r, treat ing to a non-H DL-C goal of <100 mg/dL (LDL- C of <70 mg/dL ) is consi dered a thera peuti c optio n. Not Available [email or web address] [place] [facility] [address], [place], [address], 01/22/2025 01:08:25 01/22/2001/22/2025 BASIC METAB OLIC PANEL glucose 105 mg/dL 65-99 high Fasti ng refer ence inter perfecto For someo ne witho ut known diabe lópez, a gluco se value betwe en 100 and 125 mg/dL is consi stent with predi abete s and shoul d be confi rmed with a follo w-up test. Not Available [email or web address] [address] [place], [place], [address], 01/22/2025 01:08:26 01/22/2001/22/2025 BASIC METAB OLIC PANEL urea nitrogen (BUN) 18 mg/dL 7-25 normal Not Available [email or web address] [address], [place], [address], 01/22/2025 01:08:26 01/22/2001/22/2025 BASIC METAB OLIC PANEL creatinine 1.06 mg/dL 0.60-1 .29 normal Not Available [email or web address] [place] [facility] [address], [place], [address], 01/22/2025 01:08:26 01/22/2001/22/2025 BASIC METAB OLIC PANEL eGFR 87 mL/mi n/1.7 3m2 > or = 60 normal Not Available [email or web address] [address], [place], [address], 01/22/2025 01:08:26 01/22/2001/22/2025 BASIC METAB OLIC PANEL BUN/creatini ne ratio SEE NOTE: (calc ) 6-22 Not Repor leslie: BUN and Creat inine are withi n refer ence range . Not Available [email or web address] [address] [place], [place], [address], 01/22/2025 01:08:26 01/22/20 25 01/22/2025 BASIC METAB OLIC PANEL sodium 139 mmol/ L 135-14 6 normal Not Available [facility] [place] [facility] [address], [place], [address], 01/22/2025 01:08:26 01/22/20 25 01/22/2025 BASIC METAB OLIC PANEL potassium 4.7 mmol/ L 3.5-5. 3 normal Not Available [facility] [place] [facility] [address], [place], [address], 01/22/2025 01:08:26 01/22/2001/22/2025 BASIC METAB OLIC PANEL chloride 103 mmol/ L 98-110 normal Not Available [facility] [address], [place], [address], 01/22/2025 01:08:26 01/22/20 25 01/22/2025 BASIC METAB OLIC PANEL carbon dioxide 27 mmol/ L 20-32 normal Not Available [facility] [place] [facility] [address], [place], [address], 01/22/2025 01:08:26 01/22/20 25 01/22/2025 BASIC METAB OLIC PANEL calcium 9.7 mg/dL 8.6-10 .3 normal Not Available [facility] [address], [place], [address], 01/22/2025 01:08:26 01/22/20 25 01/21/2025 HEMOG LOBIN [...] for child samir. Not Available [facility] [place] [facility] [address], [place], [address], 01/21/2025 22:46:20 01/22/2001/21/2025 HEMOG LOBIN A1C WITH MPG mean plasma glucose 154 mg/dL _(fani c) Not Available [facility] [place] [facility] [address], [place], [address], 01/21/2025 22:46:20 06/02/20 25 06/02/2025 HbA1c (hemo globi n A1c), blood HbA1c 5.9 Not Available [id number] _pc p [address] [place] [address], [address], 06/02/2025 16:05:31 01/29/20 [facility] diogr am No observ ation record ed. [email or web address] [id number] p [address] [place] [address], [address], 01/28/2025 15:27:00 02/04/20 [facility] diogr am No observ ation record ed. [email or web address] [id number]_hh p [address] [place] [address], [address], 02/03/2025 15:23:46 Result Notes None recorded. Problems Name Problem SNOMED Code Status Onset Date Resolution Date Notes Provider Name and Address Organization Details Recorded Time Partial thickness rotator cuff tear 328080996 Active 2016 Incomplete tear of right rotator cuff; JIH0Phdund ption: Incomplete tear of right rotator cuff; SZG69Xiasn iption: Incomplete tear of right rotator cuff; ; Not Available [facility] 12:38:24 Arthritis of acromiocl avicular joint 267779864 Active 2016 AC (acromiocl avicular) arthritis; VJC4Dqvxdn ption: AC (acromiocl avicular) arthritis; DTJ46Jcmzp iption: AC (acromiocl avicular) arthritis; dlname: Rebeca; dfname: Kamaljit; Physician_ Suffix: MD; Physician_ Phone: tel:[phone]; Physician_ Fax: fax:[phone]; Physician_ Specialty: Orthopedic s; Physician_ Addr1: [address]; Physician_ Addr2: [address]; Physician_ City: [place]; Physician_ State: [place]; Physician_ PostalCode : [address]; ; Not Available [facility] 12:38:25 Multiple sclerosis 35855658 Active 2022 Multiple sclerosis; LHW9Munovl ption: Multiple sclerosis; IQZ65Hannz iption: Multiple sclerosis; ; Not Available [facility] 12:38:24 Essential hypertens ion 31736801 Active 2022 Essential hypertensi on; RDN3Mhepiq ption: Essential hypertensi on; YVK50Fzwkb iption: Essential hypertensi on; dlname: Sanchez; dfname: Guille; Physician_ Suffix: ; Physician_ Specialty: Internal Medicine; ; Not Available [facility] 12:38:24 Problem Notes None recorded. Procedures Surgical History Date Name Laterality Status Provider Name and Address Organization Details Recorded Time Celina arthrs srg rt8tr cuf rpr completed Not Available [facility] 10/14/2024 04:06:26 Imaging Results None recorded. Procedure Notes None recorded. Medical Equipment None Reported. Allergies Allergen ID Allergen Name Allergen Category Reaction Reaction Severity Criticality Documentation Date Start Date Code Code System Note Provider Name and Address Organization Details Recorded Time 87782 glatirame r acetate medicatio n hives Not available Not available 09/15/20242020 52358 RxNorm React ion: Hives ; Comme nt: dfnam e: Ellie ; dlnam e: Edward nese; Physi cian_ Addr1 : [address]; Physi cian_ Addr2 : [facility]; Physi cian_ City: [facility] ord; Physi cian_ State : [place]; Physi cian_ Posta lCode : [address] ; Physi cian_ Suffi x: [place]; ; Not Available [facility] 08:38:51 Medications Name Sig Start Date Stop [...] Last Updated DateTime 02/25/202 5 180.29 cm 885995. 69 g 97 % 97 % 98 /min 31.3 kg/m2 110/70 mm[Hg] Mirnacade Lezama [facility] 16:26:18 Date Recorded Body height Heart rate Oxygen saturation Oxygen saturation in Arterial blood by Pulse oximetry Body temperature Body mass index (BMI) Body weight Systolic And Diastolic Provider Name and Address Organization Details Last Updated DateTime 5 180.34 cm 88 /min 99 % 99 % 98.2 [degF] 32.4 kg/m2 863234. 43 g 123/83 mm[Hg] Andreia Mcrae [facility] 15:10:47 Date Recorded Body height Body weight Body mass index (BMI) Oxygen saturation Oxygen saturation in Arterial blood by Pulse oximetry Heart rate Systolic And Diastolic Provider Name and Address Organization Details Last Updated DateTime 180.34 cm 190978. 47 g 31.7 kg/m2 99 % 99 % 92 /min 116/78 mm[Hg] [facility] 16:06:14 Social History None recorded. Functional Status None recorded. Mental Status None recorded. Family History Nothing Reported. Medical History No medical history recorded. Past Encounters Encounter ID Performer Location Encounter Start Date Encounter Closed Date Diagnosis/Indication Diagnosis SNOMED-CT Code Diagnosis ICD10 Code Diagnosis IMO Codes Diagnosis Note [id number] DC Zimmerman [id number] [id number] [address] [place] [address] 09/30/2024 16:16:56 09/30/2024 16:39:52 Type 2 diabetes mellitus 55097446 E11.9 - stable on Trijardy- repeat labs at physical in 4 months- patient likely statin candidate, will review at that visit with him Essential hypertension 90561768 I10 - stable, continue current therapy Smoker 32398350 F17.200 - trial of chantix- currently smoking 1 PPD- follow up in 1 month- smoking cessation advised Multiple sclerosis 23658 007 G35 - stable, followed by neurology [id number] DC Zimmerman [id number] A_[id number] [address] [place] [phone] 01/28/2025 15:02:54 01/28/2025 15:44:14 Physical examination 3412669 Z00.00 [id number] Cologuard orderedTda p 2021Flu declinedCo vid declined Essential hypertension 96113610 I10 - stable, continue current therapy Type 2 ricardo betes mellitus 53810985 E11.9 55603954 - stable on Trijardy- A1c 6.5- patient defers statin for now, LDL is at goal already < 70- follow up and A1c in 4 months Multiple sclerosis 20935 007 G35 - stable, followed by neurology Screening for malignant neoplasm of colon 735212871 Z12.11 041440 - cologuard ordered Cigarette smoker 9784870 7 F17.210 980517 - on Chantix once per day, down to 1/2 PPD- smoking cessation again advised [id number] DC Zimmerman [id number] A_[id number] [address] [place] [address] 06/02/2025 15:56:57 06/02/2025 16:39:54 Type 2 diabetes mellitus 35901458 E11.9 57691312 - Patient presents for diabetes management follow-up [...] ons, particular ly reducing sweets Cigarette smoker 8740542 7 F17.210 684242 - Patient reports ongoing difficulty with smoking [...] Lisa Member ID Guarantor Name 05/30/2025 1 [facility] [id number] Saqib Ho [id number] Saqib Ho Notes Date Note Type Note Provider Name and Address Organization Details Recorded Time 09/30/2024 text/html Doing well overall, no concerns. A1c 6.2. Has been eating more jelly beans lately. MS in remission. Sees neurology every 6 months. BP stable. Medication compliant. DC Zimmerman [address] [place] [address], [phone], [facility] 09/30/2024 16:40:17 01/28/2025 text/html The patient presents [...] possibility of removing bone spurs. DC Zimmerman [address] [place] [address], [phone], [facility] 01/28/2025 15:41:00 06/02/2025 text/html ROS as noted [...] day.He mentions not receiving vitamin D from [facility] pharmacy as expected but indicates willingness to take an oqhp-wjz-xopwccu version if recommended. The patient has a medical history of diabetes mellitus and hypertension. He is a current smoker and reports difficulty with smoking cessation despite medication trial, mentioning cigarettes tasting nasty initially on cessation medication but the effect has diminished. DC Zimmerman [address] [place] [address],[place], [address], [facility] 06/02/2025 16:28:27
--- OUTSIDE RECORDS SUMMARY | 2025-06-10 08:13 | XMS_ITS | Clinical Summary ---
Author Organization [address] [facility] Address [address] [place] [address] Phone Care Team Providers Care Corrections Unit Supervisor Name Role Phone Saud Mott Primary Care Provider [phone] Allergies Active Allergy Reactions Criticality Noted Date [...] Description 05/18/2025 4:00 PM EDT Office Visit [address] [place] [address] Kyrie Delgado MD Multiple sclerosis (Primary Dx); Vitamin D deficiency from Last 3 Months Surgical History Surgery Date Site/Laterality Comments SHOULDER ARTHROSCOPY 07/25/2017 Right PROCEDURE:SHOULDER ARTHROSCOPY;COMMENT:Procedure: ARTHROSCOPY SHOULDER ,.debridment of partial RC tear; Surgeon: Kamaljit Jose MD; Location: [facility]; Service: CSMI; Laterality: Right; SHOULDER ARTHROSCOPY 07/25/2017 Right PROCEDURE:SHOULDER ARTHROSCOPY;COMMENT:Procedure: AC EXCISION; Surgeon: Kamaljit Jose MD; Location: [facility]; Service: CSMI; Laterality: Right; ROTATOR CUFF REPAIR Right PROCEDURE:ROTATOR CUFF REPAIR Medical History Medical History Date Comments MS (multiple sclerosis) DX:MS (m ultiple sclerosis) ([facility]) Social History Tobacco Use Types Packs/Day Years [...] Description 11/19/2025 4:30 PM EDT Office Visit [facility] [address] [facility] [address] [place] [address] Sayra Allen, [place] [address] [place] [address] Health Maintenance Due Date Last Done [...] Routine 06/25/2024 3:30 PM EST Multiple sclerosis ([facility] V24, [facility] V28) HIV 1, 2 ANTIBODY, P24 ANTIGEN WITH REFLEX TO DIFFERENTIATION Routine 06/25/2024 3:30 PM EST Multiple sclerosis ([facility] V24, [facility] V28) CREATININE, SERUM Routine 06/25/2024 3:3 0 PM EST Multiple sclerosis ([facility] V24, [facility] V28) from Last 3 Months or Most Recently Relevant to Health Maintenance Results * Hepatitis C antibody (06/25/2024 3:30 PM EST) Hepatitis C Antibody Negative Negative LAB CHEMISTRY METHOD 06/25/2024 7:45 PM EST [facility] Blood Venous blood specimen / Unknown Venipuncture / Unknown 06/25/2024 3:30 PM EST 06/25/2024 3:30 PM EST Kyrie Delgado MD LAB BLOOD ORDERABLES Fin al Result [facility] [address] [place] [address], * HIV 1,2 antibody, p24 antigen with reflex to differentiation (06/25/2024 3:30 PM EST) HIV Combo AB/AG Negative Negative LAB CHEMISTRY METHOD 06/25/2024 7:47 PM EST [facility] Blood Venous blood specimen / Unknown Venipuncture / Unknown 06/25/2024 3:30 PM EST 06/25/2024 3:30 PM EST Narrative [facility] - 06/25/2024 7:47 PM EST [...] MD LAB BLOOD ORDERABLES Fin al Result [facility] [address] [place] [address], [place] [phone] * Creatinine (06/25/2024 3:30 PM EST) Creatinine 1.07 0.70 - 1.30 mg/dL LAB CHEMISTRY METHOD 06/25/2024 6:57 PM EST [facility] eGFR 86 >=60 mL/min/1. 73m2 LAB CHEMISTRY METHOD 06/25/2024 6:57 PM EST [facility] Comment:Calculation based on the Chronic Kidney Disease Epidemiology Collaboration (CKD-EPI) equation refit without adjustment for race. Blood Venous blood specimen / Unknown Venipuncture / Unknown 06/25/2024 3:30 PM EST 06/25/2024 3:30 PM EST Kyrie Delgado MD LAB BLOOD ORDERABLES Fin al Result [facility] [address] [place] [address], [place] [phone] from Last 3 Months or Most Recently Relevant to Health Maintenance [place] [address] [address] [place] [address] ELENITA GALLARDO [phone] Care Teams Corrections Unit Supervisor Relationship Specialty Start Date End Date Saud Mott PA [address] [place] [id number] PCP - General Service Plumber 11/01/20
--- OUTSIDE RECORDS SUMMARY | 2025-06-10 08:13 | XMS_ITS | Clinical Summary ---
Author Organization [facility] Address [address] [place] [address] Care Team Providers Care Vacuum Plastic Forming Machine Operator Name Role Phone Saud Mott PA-C Primary Care Provider [phone] Allergies Active Allergy Reactions Criticality Noted Date Comments Glatiramer Hives 10/18/2020 Medications Medication Sig Dispensed Refills Start Date End Date Status amLODIPine-valsartan -HCTZ (Exforge HCT) 5-160-25 MG TABS Take 1 tablet by mouth daily. 90 tablet 1 01/09/2024 Active Trijardy XR 12.5-2.5-1000 MG [id number]:Type 2 diabetes mellitus without complication, without long-term [...] place to sleep or slept in a retirement (including now)? No 01/25/2024 Sex and Gender [...] age to complete this topic Care Teams Vacuum Plastic Forming Machine Operator Relationship Specialty Start Date End Date Saud Mott PA-C PCP - General Binding Cutter 11/01/20
== END 2025-06-10 08:30 | disposition home or self-care (01) ==
LOC: HO.HOS 08:06
PROVIDERS: Visit Provider Orthopaedic Surgery
DX: S83.241A Other tear of medial meniscus, current injury, right knee, initial encounter (principal)
CPT/HCPCS: 99214

== ENCOUNTER 2025-07-13 08:27 | Day surgery (SDC) | payer OTHER, SELFPAY ==
--- NOTE | 2025-07-08 09:38 | HO.ANESPROP2 ---
Documented by User: Carmen Armstrong NP 07/08/25 09:41 HPI - Anesthesia Eval Consult details Narrative: 50yo M for Right Knee Arthroscopy,partial medial and Lateral meniscectomy Anesthesia Pre-Procedure Meds Is the patient on any of the following meds?: SGLT2 Inhib PMFSH Active Problems Active Problems: All Active Problems Tear of medial meniscus of right knee (Acute) Right knee pain (Acute) Past Medical History Medical History Diabetes Multiple sclerosis HTN (hypertension) Surgical History Surgical History Hx of shoulder surgery Social History Social History Patient Tobacco Use Status: Former Tobacco user Tobacco use type: Cigarette Use of substances other than those prescribed or required for medical reasons: Yes Substance Use Type Other:: edible nightly for dx MS--LD 07/12 Are you DNR?: No Advance Directives: No Advance Directives Information Provided: Yes Meds Allergies Allergy/AdvReac Type Severity Reaction Status Date / Time No Known Allergies Allergy Verified 07/13/25 08:47 Active Medications: Current Medications Cefazolin Sodium/Dextrose (Ancef) 2 gm in 50 mls @ 100 mls/hr IV PREOP ONE Stop: 07/13/25 05:39 Home Medications ?Medication ?Instructions ?Recorded ?Confirmed ?Last Taken ?Type amlodipine 5 mg-valsartan 160 mg 1 tab PO DAILY 05/05/25 07/09/25 Unknown History tablet empagliflozin 12.5 mg-linaglipt 2 tab PO DAILY 05/05/25 07/09/25 07/05/25 History 2.5 mg-metform ER 1,000 mg tablet,24hr (Trijardy XR) ergocalciferol (vitamin D2) 1,250 1,250 mcg PO QWEEK 05/05/25 07/09/25 Unknown History mcg (50,000 unit) capsule hydrochlorothiazide 25 mg tablet 25 mg PO DAILY 05/05/25 07/09/25 Unknown History varenicline tartrate 0.5 mg tablet 0.5 mg PO BID 05/05/25 07/09/25 Unknown History Assessment and Plan Assessment Anesthesia Assessment: Chart Reviewed Documented by User: Ryder Vega MD 07/13/25 11:02 [facility] Past Medical History Medical History Diabetes Multiple sclerosis HTN (hypertension) Family History Family history of problems with anesthesia: No Surgical History Surgical History Hx of shoulder surgery History of Problems with Anesthesia: No Social History Social History (Reviewed 07/13/25 @ 11: by Ryder Vega MD) Patient Tobacco Use Status: Former Tobacco user Tobacco use type: Cigarette Use of substances other than those prescribed or required for medical reasons: Yes Substance Use Type Other:: edible nightly for dx MS--LD 07/12 Are you DNR?: No Advance Directives: No Advance Directives Information Provided: Yes Meds Allergies Allergy/AdvReac Type Severity Reaction Status Date / Time No Known Allergies Allergy Verified 07/13/25 08:47 Home Medications ?Medication ?Instructions ?Recorded ?Confirmed ?Last Taken ?Type amlodipine 5 mg-valsartan 160 mg 1 tab PO DAILY 05/05/25 07/09/25 Unknown History tablet empagliflozin 12.5 mg-linaglipt 2 tab PO DAILY 05/05/25 07/09/25 07/05/25 History 2.5 mg-metform ER 1,000 mg tablet,24hr (Trijardy XR) ergocalciferol (vitamin D2) 1,250 1,250 mcg PO QWEEK 05/05/25 07/09/25 Unknown History mcg (50,000 unit) capsule hydrochlorothiazide 25 mg tablet 25 mg PO DAILY 05/05/25 07/09/25 Unknown History varenicline tartrate 0.5 mg tablet 0.5 mg PO BID 05/05/25 07/09/25 Unknown History Exam Exam Date and Time: 07/13/25 Airway Mallampati Class: II TM Dist: >3cm Neck ROM: Full Loose/Missing/Broken Teeth: Yes (missing) Heart: rrr Lungs: ctab vesicular Assessment and Plan Assessment Anesthesia Assessment: Anesthesia Plan Discussed and Smoking Cess. Discussed Final Anesthetic Review Family History of Problems with Anesthesia: No History of Problems with Anesthesia: No NPO: Yes ASA Class: III Final Preanesthetic Review: No Changes in Pt Med Stat, Meds/Allgs Chart Reviewed, Consent Obtained/Reviewed and Anes Risks/Benef Reviewed Patient Risk: Low Procedure Risk: Low Anesthetic Plan Anesthetic Plan: GA Disposition: Standard PACU
--- NOTE | 2025-07-10 17:08 | PC.NURSE ---
Pt contacted at 1708. Pt verbalizes understanding that surgical time has been changed to 1040 and that he should arrive at 0830.
[2025-07-13] VITALS (7 sets, daily range): BP systolic 121–134; BP diastolic 71–90; PULSE 61–79; RESP 10–20; TEMP 36.4–36.6; O2SAT 96–98; BMI 31.0
[2025-07-13] MEDS: Lactated Ringers 1,000 ML 100 ML IVCONT (09:02)
[2025-07-13 09:10] LABS: Glucose, Whole Blood 150 mg/dL (60-115)
--- NOTE | 2025-07-13 12:22 | PM.OP ---
Brief Operative Note Date of Service: 07/13/25 Pre-op diagnosis: Right knee medial meniscus tear, right knee lateral meniscus tear, right knee degenerative joint disease Post-op diagnosis: same Procedure: Right knee arthroscopic partial medial and lateral meniscectomies, right knee arthroscopic chondroplasty of the undersurface of the patella as well as the lateral femoral condyle Implants: none Surgeon: John Saxena MD Anesthesia: GLMA Was an Structural Steel Ironworker used for this Procedure?: No Estimated blood loss (mL): 10 Pathology: none sent Condition: stable Disposition: PACU
--- NOTE | 2025-07-13 12:23 | W.PM.OPN ---
Operative Note Operative Note Date of Service: 07/13/25 Narrative: After the patient was identified as Saqib Ho and his right knee was initialed by myself they were brought to the operating room where general anesthesia was induced by the anesthesiologist in routine fashion. The patient was given 2 g of IV Ancef for infection prophylaxis. A formal time-out was completed. The patient's right lower extremity was prepped and draped in sterile fashion. Marcaine with epinephrine was injected into the planned incision sites as well as their right knee joint. A # 11 scalpel blade was used to make an anterolateral portal 1 cm proximal to the joint line and 1 cm lateral to the patellar tendon. Blunt trocar technique was used into the suprapatellar pouch with the knee in extension. Diagnostic arthroscopy showed multiple bands of thickened plica which would be excised at the end of the procedure. There were no loose bodies or abnormalities found in either the medial or lateral gutters. There were diffuse grades 1 and 2 degenerative changes of the undersurface of the patella as well as grades 1 and 2 degenerative changes of the trochlear groove. The patient's knee was flexed to 45 degrees and a valgus force was placed upon it. The medial compartment was entered. An anteromedial portal was made 1 cm proximal to the joint line and 1 cm medial to the patellar tendon. Probing of the medial meniscus showed a radial tear of the posterior horn. A partial medial meniscectomy was performed using the arthroscopic shaver. Following the partial meniscectomy the remainder of the meniscus tissue was stable. There were diffuse grades 1 and 2 degenerative changes of the medial femoral condyle as well as diffuse grades 1 and 2 degenerative changes of the medial tibial plateau. The articular surface of the medial femoral condyle was made smooth using the arthroscopic shaver. The articular surface of the medial tibial plateau was already smooth so no chondroplasty was indicated. The patient's knee was then placed into a neutral position. There was no injury to the anterior cruciate ligament. The patient's knee was then placed into the figure of 4 position and the lateral compartment was entered. There were diffuse grade 3 and 4 degenerative changes of the lateral femoral condyle as well as grades 1 and 2 degenerative changes of the lateral tibial plateau. The articular surface of the lateral femoral condyle was made smooth using the arthroscopic shaver. The articular surface of the lateral tibial plateau was already smooth so no chondroplasty was indicated. There was a radial tear of the anterior horn of the lateral meniscus. A partial lateral meniscectomy was performed using the arthroscopic shaver. Following the partial meniscectomy the remainder of the meniscus tissue was stable. The patient's knee was once again brought into extension and the suprapatellar pouch was entered. The arthroscopic shaver and the ArthroCare Wand were used to excise the thickened bands of plica. The undersurface of the patella was then made smooth using the arthroscopic shaver. The articular surface of the trochlear groove was already smooth so no chondroplasty was indicated. The knee joint was irrigated and then drained. All arthroscopic instruments were removed. The 2 portals were closed with 3-0 nylon interrupted suture. The knee joint was injected with Marcaine. Dry sterile dressing and Christos bandages were placed over the patient's knee. The patient was awoken and extubated in the operating room. They were transferred to the recovery room in stable condition.
== END 2025-07-13 13:49 | disposition home or self-care (01) ==
PROVIDERS: Visit Provider Orthopaedic Surgery
PROC: (CPT 29870; principal; 2025-07-13 10:40)
DX: S83.241A Other tear of medial meniscus, current injury, right knee, initial encounter (principal); S83.281A Other tear of lateral meniscus, current injury, right knee, initial encounter; M17.11 Unilateral primary osteoarthritis, right knee; M25.561 Pain in right knee; M23.51 Chronic instability of knee, right knee; X58.XXXA Exposure to other specified factors, initial encounter; Y93.44 Activity, trampolining; Y92.9 Unspecified place or not applicable; Y99.9 Unspecified external cause status; G35.D Multiple sclerosis, unspecified; I10 Essential (primary) hypertension; E11.9 Type 2 diabetes mellitus without complications; Z79.84 Long term (current) use of oral hypoglycemic drugs; Z79.899 Other long term (current) drug therapy; Z98.890 Other specified postprocedural states; Z87.891 Personal history of nicotine dependence
CPT/HCPCS: 29880; 29876; 82947; J0131; J0165; J0690; J0696; J1100; J1171; J2003; J2250; J2405; J2704; J2795; J3010

== ENCOUNTER → 2025-07-13 08:27 | Outpatient (BNV) | payer OTHER, SELFPAY | PROVIDERS: Visit Provider Orthopaedic Surgery | DX: S83.241A Other tear of medial meniscus, current injury, right knee, initial encounter (principal); S83.281A Other tear of lateral meniscus, current injury, right knee, initial encounter | CPT/HCPCS: 29880 ==

== ENCOUNTER 2025-07-28 10:30 | Outpatient (AMB) | payer OTHER, SELFPAY ==
--- NOTE | 2025-07-28 10:39 | A.OFFVIS_ITS ---
Vital Signs 07/28/25 10:42 Height 5 ft 11 in Weight 220 lb BMI 30.7 Intake Visit Reasons: PO RT knee 07/13/25 Intake Note: Saqib is a 50 year old male who presents with complaints of mild discomfort in his right knee after undergoing right knee arthroscopic surgery on 07/13/2025. He continues with his home stretching program. He denies any fevers or chills. Allergies No Known Allergies Allergy (Verified 07/13/25 08:47) Medication List - Last Reconciled 07/28/25 by John Saxena MD amlodipine-valsartan 5-160 mg 1 tab PO DAILY paugepkcvnp-yqqvwidr-ukswkwnud 12.5-2.5-1,000 mg ER (Trijardy XR) 2 tabs PO DAILY ergocalciferol (vitamin D2) 1,250 mcg PO QWEEK hydrochlorothiazide 25 mg PO DAILY varenicline tartrate 0.5 mg PO BID PFSH Medical History Diabetes Multiple sclerosis HTN (hypertension) Surgical History Hx of shoulder surgery Social History Patient Tobacco Use Status: Former Tobacco user Tobacco use type: Cigarette Physical Exam Vital Signs: BMI result Body Mass Index 30.7 Extrem Other: Right knee examination shows that the surgical incisions are healing well, no erythema, minimal discomfort with range of motion, no instability Assessment & Plan Assessment & Plan (1) Right knee pain: Code(s): M25.561 - Pain in right knee Category: Medical Plan Mr. Ho is doing well after undergoing right knee arthroscopic surgery on 07/13/2025. His sutures were removed and Steri-Strips placed over his incisions. He will gradually progress to activities as tolerated. He will contact me shyanne la to his follow-up appointment in 2 months should any questions or concerns arise. Feel free to call me at any time should questions regarding his orthopedic management arise. Coding Level of Care Code Global (93925) Diagnoses Right knee pain M25.561
[2025-07-28 10:42] VITALS: BMI 30.7
--- OUTSIDE RECORDS SUMMARY | 2025-07-28 11:46 | XMS_ITS | Data Portability ---
Author Organization [place] [facility] [place] Address [address] [place] [address] Care Team Providers Care Pathology Tech Name Role Phone MARGUERITE SONG Primary Care Provider MARGUERITE SONG Referring Provider [phone] Assessment Encounter Date Assessment Date Assessment LastModified [...] examination, recommended tests/diagnostic imaging, and treatment plan. [email or web address] Not available 02/29/2024 16:30:47 01/02/2025 01/02/2025 Symptomatic [...] may be helpful for control of swelling. Uwec-iak-ytwiuag anti-inflammatory medications with appropriate GI precautions or [...] also benefit from consideration of a lateral construction checker brace. Not clear that he would be [...] also benefit from consideration of a lateral construction checker brace. Not clear that he would be [...] 3 view 2024 025 [email or web address] [facility], [address], [place], [address], 15:37:38 XR, shoulder, 2 or more view 2023 024 [email or web address] [facility], [address], [place], [address], 4 08:41:49 Medication Orders lidocaine (PF) 100 mg/5 mL (2 %) injection syringe 2024 025 [id number], [address] [place], [address], 5 16:39:38 triamcinolo ne acetonide 40 mg/mL suspension for injection 2024 025 [place] [address] [id number], [address] [place], [address], 5 16:39:38 lidocaine (PF) 100 mg/5 mL (2 %) injection syringe 2023 024 [facility] 21 [id number], [address] [place], [address], 4 08:41:49 triamcinolo ne acetonide 40 mg/mL suspension for injection 2023 024 [facility] 21 [id number], [address] [place], [address], 4 08:41:49 Patient TargetsNo targets recorded. Patient Instructions Encounter Date Encounter Id Patient Instructions Last Modified By Organization Details Last Modified Time 02/29/2024 [id number] Radiographs: 4 Views of the Left shoulder were obtained in the [place] office on 02/29/2024 including AP, Grashey, Y and axillary views. X-rays demonstrated normal bony mineralization. No significant degenerative changes in the AC joint with no widening. . Glenohumoral joint space well-maintained. No abnormal calcifications in the lateral shoulder. No evidence of acute injury or fracture. Interpretation by: Nic Alvarez PA-C [email or web address] Not available 02/29/2024 16:31:11 01/02/2025 [id number] Patient Instructions Following Cortisone Injections Dr. Lomas [...] call Dr. Lomas s office immediately at [phone]. Not available 01/02/2025 15:13:11 3 views of the right knee were obtained on 01/02/2025 in the [place] office. There is moderate lateral joint space narrowing with marginal osteophyte formation. Subtle marginal osteophyte formation on the medial tibial plateau. Mild retropatellar spurring. Patella tracks centrally. Small enthesophyte from the superior patella. No acute fracture appreciated. Findings: Right knee osteoarthritis as described. Interpreted by: Javier Lomas MD Not available 01/02/2025 15:33:14 01/29/2025 [id number] 3 views of the right knee were obtained on 01/02/2025 in the [place] office. There is moderate lateral joint space [...] and Address Organization Details Recorded Time Problem 04242357 Active No known active problems Not Available [facility] 23:47:41 Partial thickness rotator cuff tear 140670736 Active 2016 Incomplet e tear of right rotator cuff Not Available [facility] 23:47:41 Arthritis of acromiocl avicular joint 350696114 Active 2016 AC (acromioc lavicular ) arthritis Not Available [facility] 23:47:41 Multiple sclerosis 42719916 Active 2022 Multiple sclerosis Not Available [facility] 23:47:41 Essential hypertens ion 58790805 Active 2022 Essential hypertens ion Not Available [facility] 23:47:41 Osteoarth ritis of right knee joint 21298778743 9100 Active 2024 Javier Lomas MD [address], [place], [address] , [place] [facility] 14:50:42 Effusion of joint of right knee 66114298318 9104 Active 2024 Javier Lomas MD [address], [place], [address] , [place] [facility] 5 17:04:23 Pain of right knee joint 90273769336 4100 Active 2024 EDILSON KUMAR PA-C [address], [place], [address] , [place] [facility] 5 14:06:25 Problem Notes None recorded. Procedures Surgical History Date Name Laterality Status Provider Name and Address Organization Details Recorded Time SAB Knee Inj w/US completed Javier Lomas MD [address], [place], [address], [place] [facility] 01/02/2025 15:34:03 4 SUSAN Subacromial Shoulder Inj completed NIC ALVAREZ PA-C [address], [place], [address], [place] [facility] 02/29/2024 16:27:02 Imaging Results None recorded. Procedure Notes None recorded. Medical Equipment None Reported. Allergies Allergen ID Allergen Name Allergen Category Reaction Reaction Severity Criticality Documentation Date Start Date Code Code System Note Provider Name and Address Organization Details Recorded Time 807241 glatirame r acetate medicatio n Not available Not available Not available 04/28/20252020 25256 RxNorm React ion: Hives , sever ity: [...] Updated DateTime 01/29/2025 180.34 cm 30.7 kg/m2 55343.[address] [place] [facility] 01/29/2025 13:35:11 Date Recorded Body height Body mass index (BMI) Body weight Provider Name and Address Organization Details Last Updated DateTime 02/29/2024 180.34 cm 30.7 kg/m2 26199.[address] [place] [facility] 02/29/2024 15:51:08 Date Recorded Body height Body mass index (BMI) Body weight Heart rate Oxygen saturation Systolic And Diastolic Provider Name and Address Organization Details Last Updated DateTime 180.3 cm 31.19 kg/m2 204606 g 76 /min 98 % 147/87 mm[Hg] Not Available [facility] 5 01:02:38 Social History None recorded. Functional Status None recorded. Mental Status None recorded. Family History Nothing Reported. Medical History No medical history recorded. Past Encounters Encounter ID Performer Location Encounter Start Date Encounter Closed Date Diagnosis/Indication Diagnosis SNOMED-CT Code Diagnosis ICD10 Code Diagnosis IMO Codes Diagnosis Note [id number] NIC ALVAREZ PA-C [facility] [address] [place] [address] 02/29/2024 15:24:56 02/29/2024 16:24:52 Pain of left shoulder region 8950596478 M25.512 Additional diagnosis detail: Left shoulder pain, unspecifie d chronicity [id number] MD BESSIE Braunerlinda [place] [address] [facility] [place] [address] 01/02/2025 14:30:15 01/02/2025 15:37:38 Pain of right knee joint 8936572816 74182 M25.561 849940 Osteoarthr itis of right knee joint 9991018218 58267 M17.11 2452830 Effusion o f joint of right knee 2786529997 71751 M25.992 [id number] EDILSON KUMAR PA-C [facility] [address] [place] [address] 01/29/2025 13:29:47 01/29/2025 14:03:36 Osteoarthritis of right knee joint 3248801473 42588 M17.11 7674113 Pain of ri ght knee joint 9852165854 81545 M25.561 517719 Effusion o f joint of right knee 8119718098 76886 M25.717 [id number] Health Concerns Section Related Observation LastModified by Organization Detai ls LastModified Time None Recorded Concern Status LastModified by Organization Details LastModified Time None Recorded Advance Directives Directive None Recorded Payers Insurance Date Sequence Insurance Name Policy Number Policy Lisa Covered Member ID Lisa Member ID Guarantor Name 01/02/2025 1 LINDA [id number] Saqib Ho [id number] Saqib Ho 01/29/2025 1 [facility] [id number] Saqib Ho [id number] Saqib Ho Notes Date Note Type Note [...] ago. 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 He is a daily smoker. NIC ALVAREZ PA-C [address], [place], [address], [place] [facility] 02/29/2024 16:31:56 01/02/2025 text/html ROS as [...] Javier Lomas MD [address], [place], [address], [place] [facility] 01/02/2025 17:06:04 01/29/2025 text/html ROS as [...] EDILSON KUMAR PA-C [address], [place], [address], [place] [facility] 01/29/2025 14:09:31
--- OUTSIDE RECORDS SUMMARY | 2025-07-28 11:46 | XMS_ITS | Clinical Summary ---
Author Organization [facility] Prior to 01/03/[address] [place] [address] Care Team Providers Care Cushion Mat Maker Name Role Phone Saud Mott PA-C Primary Care Provider [phone] Allergies Active Allergy Reactions Criticality Noted Date Comments Glatiramer Hives 10/18/2020 Medications Medication Sig Dispensed Refills Start Date End Date Status amLODIPine-valsartan -HCTZ (Exforge HCT) 5-160-25 MG TABS Take 1 tablet by mouth daily. 90 tablet 1 01/09/2024 Active Trijardy XR 12.5-2.5-1000 MG SJ03Zjmrmpsrvek:Type 2 diabetes mellitus without complication, without long-term [...] place to sleep or slept in a longterm (including now)? No 01/25/2024 Sex and Gender [...] age to complete this topic Care Teams Cushion Mat Maker Relationship Specialty Start Date End Date Saud Mott PA-C PCP - General [employer]ar [employer] Supervisor 11/01/20
--- OUTSIDE RECORDS SUMMARY | 2025-07-28 11:46 | XMS_ITS | Data Portability ---
Author Organization [place] [facility], autoContract - [facility] Address [address] [place] [phone] Assessment No assessment recorded. Plan of Treatment Reminders Order Date Submit Date Provider Last Modified By Organization Details Last Modified Time Details Appointments OFFICE VISIT 30 2025 04:00P DC Dahl Not available Not available Not available Lab HbA1c (hemoglob in A1c), blood 2024 025 [email or web address] [id number] p, [address] [place] [address], [phone], 06/02/2025 16:56:02 noninvasi ve colorecta l cancer DNA + occult blood screening , QL, stool 2024 025 deyr9 [facility], [address], [address], [place], [address], 04/29/2025 16:55:23 urinalysi s, dipstick 2024 025 [email or web address] [id number] p, [address] [place] [address], [phone], 01/28/2025 15:57:22 HbA1c (hemoglob in A1c), blood 2024 025 [email or web address] [id number] p, [address] [place] [address], [phone], 09/30/2024 16:40:25 Referral None recorded. Procedures None recorded. Surgeries None recorded. Imaging electroca rdiogram 2024 [email or web address] [id number]_[id number] p, [address] [place], [address], 01/28/2025 15:57:22 Medication Orders varenicli ne tartrate [address] [facility]/Pharmacy #[id number], [address] [place], [address], 06/02/2025 16:21:26 varenicli ne tartrate 0.5 mg tablet [address] [facility]/Pharmacy #[id number], [address] [place], [address], 09/30/2024 16:38:38 Patient TargetsNo targets recorded. Patient InstructionsNo instructions recorded. Reason for Referral None Reported. Results Created Date Observation Date Name Description Value Unit Range Abnormal Flag Note LastModifiedBy Organization Detail LastModifiedTime 09/30/1909/30/2024 HbA1c (hemo globi n A1c), blood HbA1c 6.2 Not Available [id number] _pc p [address] [place] [address], [phone], 09/30/2024 16:19:08 01/22/20 25 01/22/2025 LIPID PANEL WITH REFLE X TO DIREC T LDL cholesterol, total 142 mg/dL <200 normal Not Available [facility] [address], [address], 01/22/2025 01:08:25 01/22/20 25 01/22/2025 LIPID PANEL WITH REFLE X TO DIREC T LDL HDL cholesterol 57 mg/dL > or = 40 normal Not Available [facility] [address], [address], 01/22/2025 01:08:25 01/22/20 25 01/22/2025 LIPID PANEL WITH REFLE X TO DIREC T LDL triglyceride s 96 mg/dL <150 normal Not Available [facility] [place] [facility] [address], [place], [address], 01/22/2025 01:08:25 01/22/20 25 01/22/2025 LIPID PANEL [...] 310(1 9): 2061- 2068 (http ://ed ucati on.[employer] Lilli vushaper. com/f aq/FA Q164) Not Available [facility] [place] [facility] [address], [place], [address], 01/22/2025 01:08:25 01/22/20 25 01/22/2025 LIPID PANEL WITH REFLE X TO DIREC T LDL chol/HDLC ratio 2.5 (calc ) <5.0 normal Not Available [facility] [place] [facility] [address], [place], [address], 01/22/2025 01:08:25 01/22/20 25 01/22/2025 LIPID PANEL WITH REFLE X TO DIREC T LDL non HDL cholesterol 85 mg/dL _(fani c) <130 normal For patie nts with diabe lópez plus 1 major ASCVD risk facto r, treat ing to a non-H DL-C goal of <100 mg/dL (LDL- C of <70 mg/dL ) is consi dered a thera peuti c optio n. Not Available [facility] [place] [facility] [address], [place], [address], 01/22/2025 01:08:25 01/22/2001/22/2025 BASIC METAB OLIC PANEL glucose 105 mg/dL 65-99 high Fasti ng refer ence inter perfecto For someo ne witho ut known diabe lópez, a gluco se value betwe en 100 and 125 mg/dL is consi stent with predi abete s and shoul d be confi rmed with a follo w-up test. Not Available [facility] [address] [place], [place], [address], 01/22/2025 01:08:26 01/22/2001/22/2025 BASIC METAB OLIC PANEL urea nitrogen (BUN) 18 mg/dL 7-25 normal Not Available [facility] [address], [place], [address], 01/22/2025 01:08:26 01/22/2001/22/2025 BASIC METAB OLIC PANEL creatinine 1.06 mg/dL 0.60-1 .29 normal Not Available [facility] [place] [facility] [address], [place], [address], 01/22/2025 01:08:26 01/22/2001/22/2025 BASIC METAB OLIC PANEL eGFR 87 mL/mi n/1.7 3m2 > or = 60 normal Not Available [facility] [address], [place], [address], 01/22/2025 01:08:26 01/22/2001/22/2025 BASIC METAB OLIC PANEL BUN/creatini ne ratio SEE NOTE: (calc ) 6-22 Not Repor leslie: BUN and Creat inine are withi n refer ence range . Not Available [facility] [address] [place], [place], [address], 01/22/2025 01:08:26 01/22/20 25 01/22/2025 BASIC METAB OLIC PANEL sodium 139 mmol/ L 135-[address] [facility] [place] [facility] [address], [place], [address], 01/22/2025 01:08:26 01/22/20 25 01/22/2025 BASIC METAB OLIC PANEL potassium 4.7 mmol/ L 3.5-5. 3 normal Not Available [facility] [place] [facility] [address], [place], [address], 01/22/2025 01:08:26 01/22/2001/22/2025 BASIC METAB OLIC PANEL chloride 103 mmol/ L 98-110 normal Not Available [facility] [address], [place], [address], 01/22/2025 01:08:26 01/22/20 25 01/22/2025 BASIC METAB OLIC PANEL carbon dioxide 27 mmol/ L 20-32 normal Not Available [facility] [place] [facility] [address], [place], [address], 01/22/2025 01:08:26 01/22/20 25 01/22/2025 BASIC METAB OLIC PANEL calcium 9.7 mg/dL 8.6-10 .3 normal Not Available [facility] [address], [place], [address], 01/22/2025 01:08:26 01/22/20 25 01/21/2025 HEMOG LOBIN [...] for child samir. Not Available [facility] [place] [facility] [address], [place], [address], 01/21/2025 22:46:20 01/22/2001/21/2025 HEMOG LOBIN A1C WITH MPG mean plasma glucose 154 mg/dL _(fani c) Not Available [facility] [place] [facility] [address], [place], [address], 01/21/2025 22:46:20 06/02/20 25 06/02/2025 HbA1c (hemo globi n A1c), blood HbA1c 5.9 Not Available [id number] _pc p [address] [place] [address], [address], 06/02/2025 16:05:31 01/29/[address] [facility] diogr am No observ ation record ed. [email or web address] [id number] p [address] [place] [address], [phone], 01/28/2025 15:27:00 02/04/[address] [facility] diogr am No observ ation record ed. [email or web address] [id number] p [address] [place] [address], [phone], 02/03/2025 15:23:46 Result Notes None recorded. Problems Name Problem SNOMED Code Status Onset Date Resolution Date Notes Provider Name and Address Organization Details Recorded Time Partial thickness rotator cuff tear 184883007 Active 2016 Incomplete tear of right rotator cuff; GOV8Rweszj ption: Incomplete tear of right rotator cuff; RVA29Gxpsd iption: Incomplete tear of right rotator cuff; ; Not Available [facility] 12:38:24 Arthritis of acromiocl avicular joint 433886807 Active 2016 AC (acromiocl avicular) arthritis; CSG6Lgbchx ption: AC (acromiocl avicular) arthritis; AQE94Nvtzh iption: AC (acromiocl avicular) arthritis; dlname: Rebeca; dfname: Kamaljit; Physician_ Suffix: MD; Physician_ Phone: tel:[phone]; Physician_ Fax: fax:[phone]; Physician_ Specialty: Orthopedic s; Physician_ Addr1: [address]; Physician_ Addr2: [address]; Physician_ City: [place]; Physician_ State: [place]; Physician_ PostalCode : [address]; ; Not Available [facility] 12:38:25 Multiple sclerosis 56600572 Active 2022 Multiple sclerosis; JYS8Kwcngl ption: Multiple sclerosis; XSM41Jhpsp iption: Multiple sclerosis; ; Not Available [facility] 12:38:24 Essential hypertens ion 92554142 Active 2022 Essential hypertensi on; NNN4Uprgis ption: Essential hypertensi on; GCH29Llqai iption: Essential hypertensi on; dlname: Sanchez; dfname: Guille; Physician_ Suffix: ; Physician_ Specialty: Internal Medicine; ; Not Available [facility] 12:38:24 Problem Notes None recorded. Procedures Surgical History Date Name Laterality Status Provider Name and Address Organization Details Recorded Time Celina arthrs srg rt8tr cuf rpr completed Not Available [facility] 10/14/2024 04:06:26 Imaging Results None recorded. Procedure Notes None recorded. Medical Equipment None Reported. Allergies Allergen ID Allergen Name Allergen Category Reaction Reaction Severity Criticality Documentation Date Start Date Code Code System Note Provider Name and Address Organization Details Recorded Time 58280 glatirame r acetate medicatio n hives Not available Not available 09/15/20242020 04023 RxNorm React ion: Hives ; Comme nt: dfnam e: Ellie ; dlnam e: Edward nese; Physi cian_ Addr1 : [address]; Physi cian_ Addr2 : [facility]; Physi cian_ City: [facility]; Physi cian_ State : [place]; Physi cian_ Posta lCode : [address] ; Physi cian_ Suffi x: [place]; ; Not Available [facility] 08:38:51 Medications Name Sig Start Date [...] 1 CAPSULE (50,000 UNITS TOTAL) BY MOUTH WEEKLY active Not Available Not Available No t Available oxycodone 5 mg tablet TAKE 1 TABLET BY MOUTH EVERY 6 HOURS NEEDED FOR PAIN 09/30 completed Not Available Not Available Not Available varenicline tartrate 1 mg tablet TAKE 1 TABLET BY MOUTH TWICE A DAY active Not Available Not Available No t Available varenicline tartrate 0.5 mg tablet Take [...] Recorded Body height Body weight Oxygen saturation Heart rate Body mass index (BMI) Systolic And Diastolic Provider Name and Address Organization Details Last Updated DateTime 180.29 cm 579390. 69 g 97 % 98 /min 31.3 kg/m2 110/70 mm[Hg] Mirna Lezama [facility] 16:26:18 Date Recorded Body height Heart rate Oxygen saturation Body temperature Body mass index (BMI) Body weight Systolic And Diastolic Provider Name and Address Organization Details Last Updated DateTime 180.34 cm 88 /min 99 % 98.2 [degF] 32.4 kg/m2 913897. 43 g 123/83 mm[Hg] Andreia Mcrae [facility] 15:10:47 Date Recorded Body height Body weight Body mass index (BMI) Oxygen saturation Heart rate Systolic And Diastolic Provider Name and Address Organization Details Last Updated DateTime 180.34 cm 034224. 47 g 31.7 kg/m2 99 % 92 /min 116/78 mm[Hg] [facility] 16:[facility]14 Social History None recorded. Functional Status None recorded. Mental Status None recorded. Family History Nothing Reported. Medical History No medical history recorded. Past Encounters Encounter ID Performer Location Encounter Start Date Encounter Closed Date Diagnosis/Indication Diagnosis SNOMED-CT Code Diagnosis ICD10 Code Diagnosis IMO Codes Diagnosis Note [id number] DC Zimmerman [id number] A_PCP [address] [place] [id number] 09/30/2024 16:16:56 09/30/2024 16:39:52 Type 2 diabetes mellitus 24062503 E11.9 - stable on Trijardy- repeat labs at physical in 4 months- patient likely statin candidate, will review at that visit with him Essential hypertension 42019086 I10 - stable, continue current therapy Smoker 30820849 F17.200 - trial of chantix- currently smoking 1 PPD- follow up in 1 month- smoking cessation advised Multiple sclerosis 75613 007 G35 - stable, followed by neurology [id number] DC Zimmerman [id number] A_PCP [address] [place] [id number] 01/28/2025 15:02:54 01/28/2025 15:44:14 Physical examination 9297226 Z00.00 023260 Cologuard orderedTda p 2022Flu declinedCo vid declined Essential hypertension 11026849 I10 - stable, continue current therapy Type 2 ricardo betes mellitus 26089233 E11.9 97373475 - stable on Trijardy- A1c 6.5- patient defers statin for now, LDL is at goal already < 70- follow up and A1c in 4 months Multiple sclerosis 60162 007 G35 - stable, followed by neurology Screening for malignant neoplasm of colon 132119813 Z12.11 730231 - cologuard ordered Cigarette smoker 3667484 7 F17.210 629106 - on Chantix once per day, down to 1/2 PPD- smoking cessation again advised [id number] DC Zimmerman [id number] A_PCP [address] [place] [id number] 06/02/2025 15:56:57 06/02/2025 16:39:54 Type 2 diabetes mellitus 05695172 E11.9 00655348 - Patient presents for diabetes management follow-up [...] ons, particular ly reducing sweets Cigarette smoker 2432393 7 F17.210 310808 - Patient reports ongoing difficulty with smoking [...] Lisa Member ID Guarantor Name 05/30/2025 1 [facility] [id number] Saqib Ho [id number] Saqib Ho Notes Date Note Type Note Provider Name and Address Organization Details Recorded Time 09/30/2024 text/html Doing well overall, no concerns. A1c 6.2. Has been eating more jelly beans lately. MS in remission. Sees neurology every 6 months. BP stable. Medication compliant. DC Zimmerman [address] [place] [address], [phone], [facility] 09/30/2024 16:40:17 01/28/2025 text/html The [...] possibility of removing bone spurs. DC Zimmerman [address] [place] [address], [phone], [facility] 01/28/2025 15:41:00 06/02/2025 text/html ROS [...] day.He mentions not receiving vitamin D from [facility] pharmacy as expected but indicates willingness to take an dids-sfb-taxkisp version if recommended. The patient has a medical history of diabetes mellitus and hypertension. He is a current smoker and reports difficulty with smoking cessation despite medication trial, mentioning cigarettes tasting nasty initially on cessation medication but the effect has diminished. Saud Mott, DC [address] [place] [address], [phone], [facility] 06/02/2025 16:28:27
--- OUTSIDE RECORDS SUMMARY | 2025-07-28 11:46 | XMS_ITS | Continuity of Care Document ---
Author Organization [facility], [id number] Address [address] [place] [phone] Assessment No assessment recorded. Plan of Treatment Reminders Order Date Submit Date Provider Last Modified By Organization Details Last Modified Time Details Appointments OFFICE VISIT 30 2025 04:00P M DC Zimmerman Not available Not available Not available Lab HbA1c (hemoglob in A1c), blood 2024 025 [email or web address] [id number] p, [address] [place] [address], , 06/02/2025 16:56:02 Referral None recorded. Procedures None recorded. Surgeries None recorded. Imaging None recorded. Medication Orders varenicli ne tartrate 1 mg tablet 2024 025 [facility]/Pharmacy #[id number], [address] [place] [address], [address], 06/02/2025 16:21:26 Patient TargetsNo targets recorded. Patient InstructionsNo instructions recorded. Reason for Referral None Reported. Results Created Date Observation Date Name Description Value Unit Range Abnormal Flag Note LastModifiedBy Organization Detail LastModifiedTime 06/02/2006/02/2025 HbA1c (hemo globi n A1c), blood HbA1c 5.9 Not Available [id number] _pc p [address] [place] [address], , 06/02/2025 16:05:31 Result Notes None recorded. Problems Name Problem SNOMED Code Status Onset Date Resolution Date Notes Provider Name and Address Organization Details Recorded Time Partial thickness rotator cuff tear 437919689 Active 2016 Incomplete tear of right rotator cuff; QHB4Vmtvyn ption: Incomplete tear of right rotator cuff; NVL57Qmcry iption: Incomplete tear of right rotator cuff; ; Not Available [facility] 12:38:24 Arthritis of acromiocl avicular joint 121345316 Active 2016 AC (acromiocl avicular) arthritis; XTR9Iaoewn ption: AC (acromiocl avicular) arthritis; HXS80Fxtub iption: AC (acromiocl avicular) arthritis; dlname: Rebeca; dfname: Kamaljit; Physician_ Suffix: ; Physician_ Phone: tel:[phone]; Physician_ Fax: fax:[phone]; Physician_ Specialty: Orthopedic s; Physician_ Addr1: [address]; Physician_ Addr2: [address]; Physician_ City: [place]; Physician_ State: [place]; Physician_ PostalCode : [address]; ; Not Available [facility] 12:38:25 Multiple sclerosis 85365293 Active 2022 Multiple sclerosis; UPF0Vxpytn ption: Multiple sclerosis; HJG38Lctof iption: Multiple sclerosis; ; Not Available [facility] 12:38:24 Essential hypertens ion 88745262 Active 2022 Essential hypertensi on; DKL6Jqlvdw ption: Essential hypertensi on; YGA63Uzoeb iption: Essential hypertensi on; dlname: Sanchez; dfname: Guille; Physician_ Suffix: ; Physician_ Specialty: Internal Medicine; ; Not Available [facility] 12:38:24 Problem Notes None recorded. Procedures Surgical History Date Name Laterality Status Provider Name and Address Organization Details Recorded Time Celina arthrs srg rt8tr cuf rpr completed Not Available [facility] 10/14/2024 04:06:26 Imaging Results None recorded. Procedure Notes None recorded. Medical Equipment None Reported. Allergies Allergen ID Allergen Name Allergen Category Reaction Reaction Severity Criticality Documentation Date Start Date Code Code System Note Provider Name and Address Organization Details Recorded Time 80910 glatirame r acetate medicatio n hives Not available Not available 09/15/20242020 19521 RxNorm React ion: Hives ; Comme nt: dfnam e: Ellie ; dlnam e: Cropa nese; Physi cian_ Addr1 : [address]; Physi cian_ Addr2 : [facility]; Physi cian_ City: [place]; Physi cian_ State : [place]; Physi cian_ Posta lCode : [address] ; Physi cian_ Suffi x: [place]; ; [...] Details Last Updated DateTime 5 180.34 cm 226734. 47 g 31.7 kg/m2 99 % 92 /min 116/78 mm[Hg] Mirna Lezama [place] - [facility] 5 16:06:14 Social History None recorded. Functional Status None recorded. Mental Status None recorded. Family History Nothing Reported. Medical History No medical history recorded. Past Encounters Encounter ID Performer Location Encounter Start Date Encounter Closed Date Diagnosis/Indication Diagnosis SNOMED-CT Code Diagnosis ICD10 Code Diagnosis IMO Codes Diagnosis Note [id number] DC Zimmerman [id number] A_PCP [address] [place] [id number] 06/02/2025 15:56:57 06/02/2025 16:39:54 Type 2 diabetes mellitus 00543596 E11.9 66252191 - Patient presents for diabetes management follow-up [...] ons, particular ly reducing sweets Cigarette smoker 7370630 7 F17.210 823006 - Patient reports ongoing difficulty with smoking [...] ID Guarantor Name 06/02/2025 1 [facility] [id number] Saqib Ho [id number] Saqib Ho Notes Date Note Type Note [...] day.He mentions not receiving vitamin D from [facility] pharmacy as expected but indicates willingness to take an uqeo-nim-utntijk version if recommended. The patient has a medical history of diabetes mellitus and hypertension. He is a current smoker and reports difficulty with smoking cessation despite medication trial, mentioning cigarettes tasting nasty initially on cessation medication but the effect has diminished. DC Zimmerman [address] [place] [address], [phone], [facility] 06/02/2025 16:28:27
--- OUTSIDE RECORDS SUMMARY | 2025-07-28 11:46 | XMS_ITS | Clinical Summary ---
Author Organization [address] [facility] Address [address] [place] [address] Phone Care Team Providers Care Surface Hydrologist Name Role Phone Saud Mott Primary Care Provider [phone] Allergies Active Allergy Reactions Criticality Noted Date Comments Glatiramer Hives 10/18/2020 Medications amLODIPine-vals jennifer-hcthiazid 5-160-25 mg tablet Take 1 tablet by mouth 1 (one) time each day. 08/23/2023 Active empaglifloz-joann aglip-metformin (Trijardy XR) 12.5-2.5-1,000 mg tablet, IR - ER, biphasic 24hr Take 2 tablets by mouth 1 (one) time each day. 09/06/2023 Active varenicline tartrate (CHANTIX) 0.5 mg tablet Take 1 tablet (0.5 mg total) by mouth 2 (two) times a day. 10/02/2024 Active hydroCHLOROthia zide (HYDRODIURIL) 25 mg tablet Take 1 tablet (25 mg total) by mouth 1 (one) time each day. Active ergocalciferol (VITAMIN D-2) 1,250 mcg (50,000 unit) capsule TAKE 1 CAPSULE (50,000 UNITS TOTAL) BY MOUTH ONCE WEEKLY 12 capsule 3 06/04/2025 Active Active Problems Problem Noted Date Diagnosed Date Essential hypertension 04/23/2023 Multiple sclerosis 04/23/2023 AC (acromioclavicular) arthritis 06/12/2017 Incomplete tear of right rotator cuff 06/12/2017 Encounters Date Type Department Care Team Description 05/18/2025 4:00 PM EDT Office Visit [facility] [place] [address] [place] [address] Kyrie Delgado MD Multiple sclerosis (Primary Dx); Vitamin D deficiency from Last 3 Months Surgical History Surgery Date Site/Laterality Comments SHOULDER ARTHROSCOPY 07/25/2017 Right PROCEDURE:SHOULDER ARTHROSCOPY;COMMENT:Procedure: ARTHROSCOPY SHOULDER ,.debridment of partial RC tear; Surgeon: Kamaljit Jose MD; Location: [facility]; Service: [facility]MI; Laterality: Right; SHOULDER ARTHROSCOPY 07/25/2017 Right PROCEDURE:SHOULDER ARTHROSCOPY;COMMENT:Procedure: AC EXCISION; Surgeon: Kamaljit Jose MD; Location: [facility]; Service: CSMI; Laterality: Right; ROTATOR CUFF REPAIR Right PROCEDURE:ROTATOR CUFF REPAIR Medical History Medical History Date Comments MS (multiple sclerosis) DX:MS (m ultiple sclerosis) ([facility]) Social History Tobacco Use Types Packs/Day Years Used Date Smoking Tobacco: Every Day Cigarettes 0.5 8 Started: 08/06/2017 Smokeless Tobacco: Never Tobacco Cessation:Ready to Q uit: Not Asked; Counseling Given: Not Answered Alcohol Use Standard Drinks/Week Comments Yes 2 (1 standard drink = 0.6 oz pur e alcohol) Sex and Gender Information Value Date Recorded Sex Assigned at Not on file Legal Sex Male 12:20 AM EST Gender Identity Not on file Sexual Orientation Not on file Last Filed Vital Signs [...] Description 11/19/2025 4:30 PM EDT Office Visit [facility] [address] [address] [place] [address] Sayra Allen PA [address] [place] [phone] Health Maintenance Due Date Last Done [...] EST Multiple sclerosis (CMS/HCC V24, CMS/HCC V28) HIV 1, 2 ANTIBODY, P24 ANTIGEN [...] LAB CHEMISTRY METHOD 06/25/2024 7:45 PM EST [facility] Blood Venous blood specimen / Unknown Venipuncture / Unknown 06/25/2024 3:30 PM EST 06/25/2024 3:30 PM EST Kyrie Delgado MD LAB BLOOD ORDERABLES Fin al Result [facility] [address] [place] [address], * HIV 1,2 antibody, p24 antigen with reflex to differentiation (06/25/2024 3:30 PM EST) HIV Combo AB/AG Negative Negative LAB CHEMISTRY METHOD 06/25/2024 7:47 PM EST [facility] Blood Venous blood specimen / Unknown Venipuncture / Unknown 06/25/2024 3:30 PM EST 06/25/2024 3:30 PM EST Narrative [facility] - 06/25/2024 7:47 PM EST [...] ORDERABLES Fin al Result Performing Organization Address [facility]/ZIP Co de Phone Number [facility] [address] [place] [address], [place] [phone] * Creatinine (06/25/2024 3:30 PM EST) [facility] Signature Creatinine 1.07 0.70 - 1.30 mg/dL LAB CHEMISTRY METHOD 06/25/2024 6:57 PM EST [facility] eGFR 86 >=60 mL/min/1. 73m2 LAB CHEMISTRY METHOD 06/25/2024 6:57 PM EST [facility] Comment:Calculation based on the Chronic Kidney Disease Epidemiology Collaboration (CKD-EPI) equation refit without adjustment for race. Blood Venous blood specimen / Unknown Venipuncture / Unknown 06/25/2024 3:30 PM EST 06/25/2024 3:30 PM EST Kyrie Delgado MD LAB BLOOD ORDERABLES Fin al Result Performing Organization Address [facility] Co de Phone Number [facility] [address] [place] [address], [place] [phone] from Last 3 Months or Most Recently Relevant to Health Maintenance Insurance [facility] ELENITA GALLARDO [id number] Care Teams Surface Hydrologist Relationship Specialty Start Date End Date Saud Mott PA [address] [place] [phone] PCP - General Aquatics Coordinator 11/01/20
== END 2025-07-28 11:14 | disposition home or self-care (01) ==
LOC: HO.HOS 10:30
PROVIDERS: PCP Physician Assistant Medical; Visit Provider Orthopaedic Surgery
DX: M25.561 Pain in right knee (principal)
CPT/HCPCS: 99024